=== PATIENT | female | born 1950 | race Caucasian/White ===

== ENCOUNTER 2018-12-26 07:47 | Emergency (ER) | payer MEDICARE, MEDICAID ==
[~2018-12-26] VITALS: Ht 160 cm; Wt 55.8 kg
--- OUTSIDE RECORDS SUMMARY | 2018-12-26 07:51 | XMS REPORT | Continuity of Care Document ---
Author Organization Unknown Address Unknown Allergies There is no data. Medications There is no data. Problems There is no data. Procedures There is no data. Results There is no data. Encounters ACCT No. Visit Date/Time Discharge Status Pt. Type Provider Facility Loc./Unit Complaint [id number] 12/15/2018 09:00:00 12/15/2018 23:59:59 CLS Outpatient SELF, DIEGO RUELAS [facility]
--- NOTE | 2018-12-26 08:04 | ED General ---
General Stated Complaint: CHEST PAIN Source of Information: Patient History of Present Illness Date Seen by Provider: December 26, 2018 Time Seen by Provider: 08:01 Initial Comments Patient is a 68 y/o female who presents to the ER this morning c/o chest pain. She was at rest, sitting on her couch, around 07:30 this morning when she had onset of some sternal chest pain, shortness of breath, and anxiety symptoms. Patient does not endorse prior hx of CAD but does have anxiety. Pain was rated 9/10 on arrival to the ER and the patient is also hyperventilating. Pain episode subsided after five minutes at home but the patient came to the ER for evaluation. On arrival, she was hyperventilating but this also subsided quickly. Patient no states she just feels anxious. Allergies and Home Medications Allergies Coded Allergies: No Known Drug Allergies (Unverified , 12/26/18) Home Medications Aspirin 81 Mg Tab.chew, 81 MG PO DAILY, (Reported) Esomeprazole Magnesium 40 Mg Capsule.dr, 40 MG PO DAILY, (Reported) Patient Home Medication List Home Medication List Reviewed: Yes Review of Systems Review of Systems Constitutional: no symptoms reported EENTM: no symptoms reported Respiratory: no symptoms reported Cardiovascular: see HPI Gastrointestinal: no symptoms reported Genitourinary: no symptoms reported Musculoskeletal: no symptoms reported Skin: no symptoms reported Psychiatric/Neurological: No Symptoms Reported Hematologic/Lymphatic: No Symptoms Reported All Other Systems Reviewed Negative Unless Noted: Yes Physical Exam Vital Signs Vital Signs - First Documented Capillary Refill : Height, Weight, BMI Height: '" Weight: lbs. oz. kg; BMI Method: General Appearance: No Apparent Distress, WD/WN Eyes: Bilateral Eye PERRL, Bilateral Eye EOMI HEENT: PERRL/EOMI, TMs Normal, Normal ENT Inspection Neck: Full Range of Motion Respiratory: Chest Non Tender, Lungs Clear, Normal Breath Sounds Cardiovascular: Regular Rate, Rhythm, No Edema Gastrointestinal: Normal Bowel Sounds Rectal: Normal Exam Extremity: Normal Capillary Refill Neurologic/Psychiatric: Alert, Oriented x3, No Motor/Sensory Deficits Skin: Normal Color, Warm/Dry Progress/Results/Core Measures Suspected Sepsis SIRS Temperature: Pulse: Respiratory Rate: Laboratory Tests 12/26/18 08:00: White Blood Count 4.6 Blood Pressure / Mean: Laboratory Tests 12/26/18 08:00: Creatinine 0.97, Platelet Count 358 Results/Orders Lab Results Laboratory Tests Test 12/26/18 08:00 12/26/18 10:00 Range/Units White Blood Count 4.6 4.3-11.0 10^3/uL Red Blood Count 3.97 L 4.35-5.85 10^6/uL Hemoglobin 12.2 11.5-16.0 G/DL Hematocrit 37 35-52 % Mean Corpuscular Volume 93 80-99 FL Mean Corpuscular Hemoglobin 31 25-34 PG Mean Corpuscular Hemoglobin Concent 33 32-36 G/DL Red Cell Distribution Width 13.6 10.0-14.5 % Platelet Count 358 130-400 10^3/uL Mean Platelet Volume 9.0 7.4-10.4 FL Neutrophils (%) (Auto) 54 42-75 % Lymphocytes (%) (Auto) 28 12-44 % Monocytes (%) (Auto) 8 0-12 % Eosinophils (%) (Auto) 8 0-10 % Basophils (%) (Auto) 2 0-10 % Neutrophils # (Auto) 2.5 1.8-7.8 X 10^3 Lymphocytes # (Auto) 1.3 1.0-4.0 X 10^3 Monocytes # (Auto) 0.4 0.0-1.0 X 10^3 Eosinophils # (Auto) 0.4 H 0.0-0.3 10^3/uL Basophils # (Auto) 0.1 0.0-0.1 10^3/uL Neutrophils % (Manual) 58 % Lymphocytes % (Manual) 25 % Monocytes % (Manual) 8 % Eosinophils % (Manual) 8 % Basophils % (Manual) 1 % Band Neutrophils 0 % Blood Morphology Comment NORMAL Sodium Level 141 135-145 MMOL/L Potassium Level 3.3 L 3.6-5.0 MMOL/L Chloride Level 101 98-107 MMOL/L Carbon Dioxide Level 19 L 21-32 MMOL/L Anion Gap 21 H 5-14 MMOL/L Blood Urea Nitrogen 10 7-18 MG/DL Creatinine 0.97 0.60-1.30 MG/DL Estimat Glomerular Filtration Rate 57 BUN/Creatinine Ratio 10 Glucose Level 88 70-105 MG/DL Calcium Level 9.3 8.5-10.1 MG/DL Troponin T 7 7 <=10 NG/L My Orders Orders - CATHY FELICIANO DO Cbc And Manual Diff (5/19/19 07:59) Basic Metabolic Panel (12/26/18 07:59) Troponin T (12/26/18 07:59) Chest 1 View Ap/Pa Only (12/26/18 07:59) Ekg Tracing (12/26/18 07:59) Aspirin Chewable Tablet (Baby Aspirin Ch (12/26/18 08:30) Troponin T (12/26/18 09:27) Medications Given in ED Current Medications Medications Dose Ordered Sig/[place] Route Start Time Stop Time Status Last Admin Dose Admin Aspirin 325 mg ONCE ONCE PO 12/26/18 08:30 12/26/18 08:36 DC 12/26/18 08:40 324 MG Vital Signs/I&O 12/26/18 12/26/18 07:52 07:52 Temp 97.9 Pulse 88 Resp 20 B/P (MAP) 146/92 (110) Pulse Ox 97 O2 Delivery Room Air Room Air Capillary Refill : Progress Note : Time: 10:41 Progress Note ED Summary: Patient was evaluated in the emergency department for chest pain which was fleeting and had resolved prior to her arrival in the ER. Patient has no personal history of coronary artery disease. She does have a history of anxiety and she endorsed that she felt this was the likely cause for her symptoms. In the ER, chest x-ray was completed and was nonacute. Troponin was collected 2, 2 hours apart and there was no elevation. Patient had no symptoms during the ED course. She was discharged to home. She already has scheduled follow-up with cardiology 3 days from now for initial stratification and risk assessment. Patient was advised to keep that appointment. Return to this ER if she develops any new or worsening symptoms. ECG Initial ECG Impression Date: December 26, 2018 Initial ECG Impression Time: 08:03 Initial ECG Rate: 78 Initial ECG Rhythm: Normal Sinus Initial ECG Intervals: Normal Initial ECG Impression: Normal Departure Impression Primary Impression: Chest pain Disposition: 01 HOME, SELF-CARE Condition: Improved Departure-Patient Inst. Referrals: SELF,DIEGO CARDENAS (PCP/Family) Primary Care Physician CATHY FELICIANO DO December 26, 2018 08:04
[2018-12-26 08:12] LABS: BASOPHILS % (AUTO) 2 % (0-10); EOSINOPHILS % (AUTO) 8 % (0-10); HEMATOCRIT 37 % (35-52); HEMOGLOBIN 12.2 G/DL (11.5-16.0); LYMPHOCYTES # (AUTO) 1.3 X 10^3 (1.0-4.0); LYMPHOCYTES % (AUTO) 28 % (12-44); MEAN CORPUSCULAR HEMOGLOBIN 31 PG (25-34); MEAN CORPUSCULAR HGB CONC 33 G/DL (32-36); MEAN CORPUSCULAR VOLUME 93 FL (80-99); MONOCYTES % (AUTO) 8 % (0-12); NEUTROPHILS # (AUTO) 2.5 X 10^3 (1.8-7.8); NEUTROPHILS % (AUTO) 54 % (42-75); PLATELET COUNT 358 10^3/uL (130-400); RED CELL DISTRIBUTION WIDTH 13.6 % (10.0-14.5); WHITE BLOOD COUNT 4.6 10^3/uL (4.3-11.0)
[2018-12-26 08:13] LABS: BASOPHILS # (AUTO) 0.1 10^3/uL (0.0-0.1); EOSINOPHILS # (AUTO) 0.4 10^3/uL (0.0-0.3); MONOCYTES # (AUTO) 0.4 X 10^3 (0.0-1.0)
[2018-12-26] MEDS ORDERED: ASPI-999 PO (08:20)
[2018-12-26] MEDS ORDERED: ESOM40CA52 PO (08:20)
--- NOTE | 2018-12-26 08:24 | Diagnostic Imaging Report ---
INDICATION: Sharp left-sided chest pain starting today.. TECHNIQUE: Single view chest 7:52 AM. CORRELATION STUDY: None FINDINGS: Heart size within normal limits. Vasculature within normal limits. Lung [place] are hyperinflated reflecting COPD. Some blunting the costophrenic angles may reflect a small pleural effusions versus pleural thickening. No consolidating infiltrate. Biapical pleural thickening. No pneumothorax. Lung apices are obscured by overlying monitor leads. IMPRESSION: 1. Findings reflect COPD. There may be trace pleural effusions versus pleural thickening. Dictated by: Dictated on workstation # [id number]
[2018-12-26] MEDS ORDERED: ASPIRIN 81 MG CHEW (CHILDREN'S ASA) PO ONE (08:30)
[2018-12-26 08:34] LABS: BAND NEUTROPHILS 0 %; CALCIUM 9.3 MG/DL (8.5-10.1); CREATININE SERUM 0.97 MG/DL (0.60-1.30); NEUTROPHILS % (MANUAL) 58 %; POTASSIUM 3.3 MMOL/L (3.6-5.0)
[2018-12-26 08:35] LABS: BASOPHILS % (MANUAL) 1 %; EOSINOPHILS % (MANUAL) 8 %; LYMPHOCYTES % (MANUAL) 25 %; MONOCYTES % (MANUAL) 8 %; RBC MORPH NORMAL
[2018-12-26 11:18] VITALS: BP 91/55
== END 2018-12-26 11:40 | disposition home or self-care (01) ==
LOC: EDUNIT# 07:47 → ER FS 07:48
DX: R07.9 Chest pain, unspecified (principal); F41.9 Anxiety disorder, unspecified; Z79.82 Long term (current) use of aspirin
CPT/HCPCS: 36415; 71045; 80048; 84484; 85007; 85027; 93005

== ENCOUNTER 2019-08-31 09:54 | Emergency (ER) | payer MEDICARE, MEDICAID ==
[~2019-08-31] VITALS: Ht 160 cm; Wt 52.6 kg
[~2019-08-31 09:54] MED LIST: ASPI-999 PO; ESOM40CA52 PO
--- NOTE | 2019-08-31 10:59 | ED Cardiac General ---
History of Present Illness General Chief Complaint: Cardiac/General Problems Stated Complaint: SOB; ELEV HR Nursing Triage Note: Pt presents ambulatory to ED reporting over last week while at rest she experiences feeling of heart racing that makes her feel SOA. Pt denies these symptoms currently. Pt is talking rapidly and moving all extremities frequently appearing very nervous. Pt reports anxiety dx on last visit for same. History of Present Illness Date Seen by Provider: Aug 31, 2019 Time Seen by Provider: 10:55 Initial Comments 68-year-old female told the nurse that she's had a feeling of her heart racing and shortness of breath for a week told me her heart was racing all night she got hot and sweaty and nauseated she says her heart at one point slowed to nothing and then raced again she denies ever having had pain no fever or cough is not sob currently is unaware of any having any cardiac or pulmonary pathology has never used inhalers She relates that frequently after she eats food will go right through her She does mention lupus and scleroderma and some other connective tissue type things which apparently there is possibility that she has one or more of these but she is not currently under treatment for anything specifically Right now she does not feel her heart is racing and has no symptoms monitoring analyst shows a sinus rhythm in the 90s with occ PAC Allergies and Home Medications Allergies Coded Allergies: No Known Drug Allergies (Unverified , 12/26/18) Home Medications Aspirin 81 Mg Tab.chew, 81 MG PO DAILY, (Reported) Esomeprazole Magnesium 40 Mg Capsule.dr, 40 MG PO DAILY, (Reported) Patient Home Medication List Home Medication List Reviewed: Yes Review of Systems Review of Systems Constitutional: No fever EENTM: No Symptoms Reported Respiratory: Other (to me pt denies sob) Cardiovascular: Palpitations; Denies Syncope Gastrointestinal: No Symptoms Reported Genitourinary: No Symptoms Reported Musculoskeletal: no symptoms reported Skin: no symptoms reported Psychiatric/Neurological: No Symptoms Reported Endocrine: No Symptoms Reported Hematologic/Lymphatic: No Symptoms Reported Past Ndapodr-Huynde-Wakzga Hx Patient Social History Alcohol Use: Denies Use Recreational Drug Use: No Smoking Status: Never a Smoker 2nd Hand Smoke Exposure: No Recent Foreign Travel: No Contact w/Someone Who Travel: No Recent Infectious Disease Expo: No Recent Hopitalizations: No Physical Abuse: No Sexual Abuse: No Mistreated: No Fear: No Seasonal Allergies Seasonal Allergies: No Past Medical History Surgeries: Yes Adenoidectomy, Gallbladder, Tonsillectomy Respiratory: Yes Pneumonia, COPD Cardiac: No Neurological: No Genitourinary: Yes (glomerulonephritis) Gastrointestinal: Yes (gastritis, duodenitis) Gastroesophageal Reflux Musculoskeletal: Yes Fibromyalgia Endocrine: Yes (systemic scleroderma) Lupus HEENT: No Cancer: No Psychosocial: Yes Anxiety, Depression Integumentary: Yes (scleroderma) Blood Disorders: No Physical Exam Vital Signs Vital Signs - First Documented 08/31/19 10:00 Temp 36.6 Pulse 87 Resp 22 B/P (MAP) 129/73 (91) Pulse Ox 100 O2 Delivery Room Air Capillary Refill : Less Than 3 Seconds Height, Weight, BMI Height: 5'3.00" Weight: 123lbs. oz. 55.674408vw; 20.00 BMI Method:Stated General Appearance: No Apparent Distress HEENT: PERRL/EOMI Neck: Normal Inspection, Supple; No Thyromegaly Respiratory: Lungs Clear, No Accessory Muscle Use Cardiovascular: Regular Rate, Rhythm, No Murmur Gastrointestinal: Normal Bowel Sounds Rectal: Normal Exam Progress/Results/Core Measures Results/Orders Lab Results Laboratory Tests Test 08/31/19 10:58 08/31/19 11:16 Range/Units White Blood Count 4.2 L 4.3-11.0 10^3/uL Red Blood Count 3.87 L 4.35-5.85 10^6/uL Hemoglobin 11.6 11.5-16.0 G/DL Hematocrit 37 35-52 % Mean Corpuscular Volume 96 80-99 FL Mean Corpuscular Hemoglobin 30 25-34 PG Mean Corpuscular Hemoglobin Concent 31 L 32-36 G/DL Red Cell Distribution Width 13.6 10.0-14.5 % Platelet Count 248 130-400 10^3/uL Mean Platelet Volume 9.2 7.4-10.4 FL Neutrophils (%) (Auto) 75 42-75 % Lymphocytes (%) (Auto) 14 12-44 % Monocytes (%) (Auto) 7 0-12 % Eosinophils (%) (Auto) 3 0-10 % Basophils (%) (Auto) 1 0-10 % Neutrophils # (Auto) 3.2 1.8-7.8 X 10^3 Lymphocytes # (Auto) 0.6 L 1.0-4.0 X 10^3 Monocytes # (Auto) 0.3 0.0-1.0 X 10^3 Eosinophils # (Auto) 0.1 0.0-0.3 10^3/uL Basophils # (Auto) 0.1 0.0-0.1 10^3/uL Sodium Level 139 135-145 MMOL/L Potassium Level 3.4 L 3.6-5.0 MMOL/L Chloride Level 103 98-107 MMOL/L Carbon Dioxide Level 20 L 21-32 MMOL/L Anion Gap 16 H 5-14 MMOL/L Blood Urea Nitrogen 15 7-18 MG/DL Creatinine 0.91 0.60-1.30 MG/DL Estimat Glomerular Filtration Rate > 60 BUN/Creatinine Ratio 16 Glucose Level 80 70-105 MG/DL Calcium Level 9.0 8.5-10.1 MG/DL Corrected Calcium 8.8 8.5-10.1 MG/DL Total Bilirubin 0.5 0.1-1.0 MG/DL Aspartate Amino Transf (AST/SGOT) 16 5-34 U/L Alanine Aminotransferase (ALT/SGPT) 8 0-55 U/L Alkaline Phosphatase 55 40-136 U/L Troponin I < 0.30 <0.30 NG/ML Total Protein 6.4 6.4-8.2 GM/DL Albumin 4.2 3.2-4.5 GM/DL My Orders Orders - NAINA IRCHARDS MD Monitor-Rhythm Ecg Trace Only (08/31/19 10:30) Iv Heplock-Insert (Order) (08/31/19 10:51) Cbc With Automated Diff (08/31/19 10:51) Comprehensive Metabolic Panel (08/31/19 10:51) Troponin I Fs (08/31/19 10:51) Thyroid Stimulating Hormone (08/31/19 10:51) Ekg Tracing (08/31/19 10:51) Chest Pa/Lat (2 View) (08/31/19 10:51) Vital Signs/I&O 08/31/19 10:00 Temp 36.6 Pulse 87 Resp 22 B/P (MAP) 129/73 (91) Pulse Ox 100 O2 Delivery Room Air Blood Pressure Mean: 91 Progress Progress Note : Progress Note CXR - no acute findings hemoglobin 11 6 white count 4200 CMP essentially normal TSH - am told is send out so remains pending EKG : Comment EKG shows a sinus rhythm rate 59 no acute changes Departure Impression Primary Impression: Palpitations Disposition: 01 HOME, SELF-CARE Condition: Stable Departure-Patient Inst. Decision time for Depature: 12:05 Referrals: SELFDIEGO MD (PCP/Family) Primary Care Physician Patient Instructions: Palpitations NAINA RICHARDS MD Aug 31, 2019 10:59
--- NOTE | 2019-08-31 11:00 | NUR ---
Patient has an occas PAC, very rare PVC on monitor. Monitor reveals SR 70-80's.
--- NOTE | 2019-08-31 11:11 | Diagnostic Imaging Report ---
CLINICAL INDICATION: Patient with palpitations. EXAM: Chest x-ray, PA and lateral views. COMPARISONS: Chest x-ray dated 12/26/2018. FINDINGS: Lungs/pleura: Again seen hyperinflated lungs. There is no interval lung infiltrate. There are slightly increased lung markings in both lung bases, which may represent scarring. There is no pneumothorax. There is no pleural effusion. Mediastinum: Unremarkable. Pulmonary vasculature: Unremarkable. Heart: Unremarkable. Bones/extrathoracic soft tissue: There are small spurs involving the thoracic spine. IMPRESSION: 1: There is no radiographic evidence of acute cardiopulmonary process. 2: Stable hyperinflated lungs. No radiographic evidence of acute cardiopulmonary process. Dictated by: Dictated on workstation # [id number]
[2019-08-31 11:33] LABS: HEMATOCRIT 37 % (35-52); HEMOGLOBIN 11.6 G/DL (11.5-16.0); MEAN CORPUSCULAR HEMOGLOBIN 30 PG (25-34); MEAN CORPUSCULAR HGB CONC 31 G/DL (32-36); MEAN CORPUSCULAR VOLUME 96 FL (80-99); MEAN PLATELET VOLUME 9.2 FL (7.4-10.4); PLATELET COUNT 248 10^3/uL (130-400); RED CELL DISTRIBUTION WIDTH 13.6 % (10.0-14.5); WHITE BLOOD COUNT 4.2 10^3/uL (4.3-11.0)
[2019-08-31 11:34] LABS: BASOPHILS # (AUTO) 0.1 10^3/uL (0.0-0.1); BASOPHILS % (AUTO) 1 % (0-10); EOSINOPHILS # (AUTO) 0.1 10^3/uL (0.0-0.3); EOSINOPHILS % (AUTO) 3 % (0-10); LYMPHOCYTES # (AUTO) 0.6 X 10^3 (1.0-4.0); LYMPHOCYTES % (AUTO) 14 % (12-44); MONOCYTES # (AUTO) 0.3 X 10^3 (0.0-1.0); MONOCYTES % (AUTO) 7 % (0-12); NEUTROPHILS # (AUTO) 3.2 X 10^3 (1.8-7.8); NEUTROPHILS % (AUTO) 75 % (42-75)
[2019-08-31 11:48] LABS: ALANINE AMINOTRANSFERASE 8 U/L (0-55); ALKALINE PHOSPHATASE 55 U/L (40-136); BILIRUBIN,TOTAL 0.5 MG/DL (0.1-1.0); BUN/CREATININE RATIO 16; CARBON DIOXIDE 20 MMOL/L (21-32); CHLORIDE 103 MMOL/L (98-107); CREATININE SERUM 0.91 MG/DL (0.60-1.30); GFR ESTIMATED > 60; GLUCOSE 80 MG/DL (70-105); POTASSIUM 3.4 MMOL/L (3.6-5.0); SODIUM 139 MMOL/L (135-145)
[2019-08-31 11:49] LABS: ALBUMIN 4.2 GM/DL (3.2-4.5); TOTAL PROTEIN 6.4 GM/DL (6.4-8.2)
--- NOTE | 2019-08-31 12:00 | NUR ---
Pt continues to remain chest pain free and and monitor pattern SR 60's - low 70's with occas PAC and very rare PVC noted. Pt remains feeling calmer and less anxious.
[2019-08-31 12:11] VITALS: BP 108/58
--- NOTE | 2019-08-31 12:11 | NUR ---
Patient discharged to home after review of home instructions read and verbalized as understood. Pt reports understanding she will f/u with Dr Rueda to get thyroid result.
== END 2019-08-31 12:11 | disposition home or self-care (01) ==
LOC: EDUNIT# 09:54 → ER FS 09:55
DX: R00.2 Palpitations (principal); J44.9 Chronic obstructive pulmonary disease, unspecified; F41.9 Anxiety disorder, unspecified; F32.9 Major depressive disorder, single episode, unspecified; K21.9 Gastro-esophageal reflux disease without esophagitis; M79.7 Fibromyalgia; Z79.82 Long term (current) use of aspirin; Z90.89 Acquired absence of other organs; Z87.39 Personal history of other diseases of the musculoskeletal system and connective tissue
CPT/HCPCS: 36415; 71046; 80053; 84443; 84484; 85025; 93005; 93041

== ENCOUNTER 2020-03-16 20:05 | Emergency (ER) | payer OTHER, MEDICAID ==
[~2020-03-16] VITALS: Ht 162.6 cm; Wt 56.4 kg
--- OUTSIDE RECORDS SUMMARY | 2020-03-16 20:09 | XMS REPORT | Continuity of Care Document ---
Author Organization Unknown Address Unknown Phone Unavailable Allergies Active Description Code Type Severity Reaction Onset Reported/Identified Relationship to Patient Clinical Status Yes No Known Drug Allergies [id number] Drug Allergy Unknown N/A 12/26/2018 Medications There is no data. Problems Date Dx Coded Attending Type Code Diagnosis Diagnosed By 12/26/2018 CATHY FELICIANO DO, Ot F41 .9 ANXIETY DISORDER, UNSPECIFIED 12/26/2018 CATHY FELICIANO DO, Ot R07 .9 CHEST PAIN, UNSPECIFIED 12/26/2018 CATHY FELICIANO DO, Ot Z79.82 RETIREMENT (CURRENT) USE OF ASPIRIN 08/31/2019 NAINA RICHARDS MD, Ot F32. 9 MAJOR DEPRESSIVE DISORDER, SINGLE EPISOD 08/31/2019 NAINA RICHARDS MD, Ot F41. 9 ANXIETY DISORDER, UNSPECIFIED 08/31/2019 NAINA RICHARDS MD, Ot J44. 9 CHRONIC OBSTRUCTIVE PULMONARY DISEASE, U 08/31/2019 NAINA RICHARDS MD, Ot K21. 9 GASTRO-ESOPHAGEAL REFLUX DISEASE WITHOUT 08/31/2019 NAINA RICHARDS MD, Ot M79. 7 FIBROMYALGIA 08/31/2019 NAINA RICHARDS MD, Ot R00. 2 PALPITATIONS 08/31/2019 NAINA RICHARDS MD Ot R06. 02 SHORTNESS OF BREATH 08/31/2019 NAINA RICHARDS MD, Ot Z79. 82 RETIREMENT (CURRENT) USE OF ASPIRIN 08/31/2019 NAINA RICHARDS MD Ot Z87. 39 PERSONAL HISTORY OF DISEASES OF THE MS S 08/31/2019 NAINA RICHARDS MD, Ot Z90. 89 ACQUIRED ABSENCE OF OTHER ORGANS Procedures There is no data. Results Test Result Range Blood CBC with ordered manual differenti al panel - 12/26/18 08:00 Blood leukocytes automated count (number/volume) 4.6 10*3/uL 4.3-11.0 Blood erythrocytes automated count (number/volume) 3.97 10*6/uL 4.35-5.85 Venous blood hemoglobin measurement (mass/volume) 12.2 g/dL 11.5-16.0 Blood hematocrit (volume fraction) 37 % 35-52 Automated erythrocyte mean corpuscular volume 93 [ [facility]] 80-99 Automated erythrocyte mean corpuscular h emoglobin (mass per erythrocyte) 31 pg 25-34 Automated erythrocyte mean corpuscular h emoglobin concentration measurement (mass/volume) 33 g/dL 32-36 Automated erythrocyte distribution width ratio 13. 6 % 10.0- 14.5 Automated blood platelet count (count/volume) 358 10*3/uL 130-400 Automated blood platelet mean volume measurement 9.0 [z_us] 7.4-10.4 Automated blood neutrophils/100 leukocytes 54 % 42-75 Automated blood lymphocytes/100 leukocytes 28 % 12-44 Blood monocytes/100 leukocytes 8 % NRG Automated blood eosinophils/100 leukocytes 8 % 0-10 Automated blood basophils/100 leukocytes 2 % 0-10 Blood neutrophils automated count (number/volume) 2.5 10*3 1.8-7.8 Blood lymphocytes automated count (number/volume) 1.3 10*3 1.0-4.0 Blood monocytes automated count (number/volume) 0. 4 10*3 0.0-1.0 Automated eosinophil count 0.4 10*3/uL 0 .0-0.3 Automated blood basophil count (count/volume) 0.1 10*3/uL 0.0-0.1 Manual blood segmented neutrophils/100 leukocytes 58 % NRG Blood band neutrophils/100 leukocytes 0 % NRG Manual blood lymphocytes/100 leukocytes 25 % NRG Manual eosinophils/100 leukocytes in nose 8 % NRG Manual blood basophils/100 leukocytes 1 % NRG Blood erythrocyte morphology finding identification NORMAL [facility] Whole blood basic metabolic panel - 12/08 04/28 08:00 Serum or plasma sodium measurement (moles/volume) 141 mmol/L 135-145 Serum or plasma potassium measurement (moles/volume) 3.3 mmol/L 3.6-5.0 Serum or plasma chloride measurement (moles/volume) 101 mmol/L 98-107 Carbon dioxide 19 mmol/L 21-32 Serum or plasma anion gap determination (moles/volume) 21 mmol/L 5-14 Serum or plasma urea nitrogen measurement (mass/volume ) 10 mg/dL 7-18 Serum or plasma creatinine measurement (mass/volume) 0.97 mg/dL 0.60-1.30 Serum or plasma urea nitrogen/creatinine mass ratio 10 NRG Serum or plasma creatinine measurement w ith calculation of estimated glomerular filtration rate 57 NRG Serum or plasma glucose measurement (mass/volume) 88 mg/dL 70-105 Serum or plasma calcium measurement (mass/volume) 9.3 mg/dL 8.5-10.1 TROPONIN T - 12/26/18 08:00 TROPONIN T 7 % <=10 TROPONIN T - 12/26/18 10:00 TROPONIN T 7 % <=10 Complete blood count (CBC) with automate d white blood cell (WBC) differential - 08/31/19 10:58 Blood leukocytes automated count (number/volume) 4.2 10*3/uL 4.3-11.0 Blood erythrocytes automated count (number/volume) 3.87 10*6/uL 4.35-5.85 Venous blood hemoglobin measurement (mass/volume) 11.6 g/dL 11.5-16.0 Blood hematocrit (volume fraction) 37 % 35-52 Automated erythrocyte mean corpuscular volume 96 [ foz_us] 80-99 Automated erythrocyte mean corpuscular h emoglobin (mass per erythrocyte) 30 pg 25-34 Automated erythrocyte mean corpuscular h emoglobin concentration measurement (mass/volume) 31 g/dL 32-36 Automated erythrocyte distribution width ratio 13. 6 % 10.0- 14.5 Automated blood platelet count (count/volume) 248 10*3/uL 130-400 Automated blood platelet mean volume measurement 9.2 [foz_us] 7.4-10.4 Automated blood neutrophils/100 leukocytes 75 % 42-75 Automated blood lymphocytes/100 leukocytes 14 % 12-44 Blood monocytes/100 leukocytes 7 % 0-12 Automated blood eosinophils/100 leukocytes 3 % 0-10 Automated blood basophils/100 leukocytes 1 % 0-10 Blood neutrophils automated count (number/volume) 3.2 10*3 1.8-7.8 Blood lymphocytes automated count (number/volume) 0.6 10*3 1.0-4.0 Blood monocytes automated count (number/volume) 0. 3 10*3 0.0-1.0 Automated eosinophil count 0.1 10*3/uL 0 .0-0.3 Automated blood basophil count (count/volume) 0.1 10*3/uL 0.0-0.1 Comprehensive metabolic panel - 08/31/19 11:16 Serum or plasma sodium measurement (moles/volume) 139 mmol/L 135-145 Serum or plasma potassium measurement (moles/volume) 3.4 mmol/L 3.6-5.0 Serum or plasma chloride measurement (moles/volume) 103 mmol/L 98-107 Carbon dioxide 20 mmol/L 21-32 Serum or plasma anion gap determination (moles/volume) 16 mmol/L 5-14 Serum or plasma urea nitrogen measurement (mass/volume ) 15 mg/dL 7-18 Serum or plasma creatinine measurement (mass/volume) 0.91 mg/dL 0.60-1.30 Serum or plasma urea nitrogen/creatinine mass ratio 16 NRG Serum or plasma creatinine measurement w ith calculation of estimated glomerular filtration rate > NRG Serum or plasma glucose measurement (mass/volume) 80 mg/dL 70-105 Serum or plasma calcium measurement (mass/volume) 9.0 mg/dL 8.5-10.1 Serum or plasma total bilirubin measurement (mass/volu me) 0.5 mg/dL 0.1-1.0 Serum or plasma alkaline phosphatase yani surement (enzymatic activity/volume) 55 U/L 40-136 Serum or plasma aspartate aminotransfera se measurement (enzymatic activity/volume) 16 U/L 5-34 Serum or plasma alanine aminotransferase measurement (enzymatic activity/volume) 8 U/L 0-55 Serum or plasma protein measurement (mass/volume) 6.4 g/dL 6.4-8.2 Serum or plasma albumin measurement (mass/volume) 4.2 g/dL 3.2-4.5 CALCIUM CORRECTED 8.8 mg/dL 8.5-10.1 TROPONIN I FS - 08/31/19 11:16 TROPONIN I FS < 0.30 <0.30 THYROID STIMULATING HORMONE - 08/31/19 1 1:16 THYROID STIMULATING HORMONE 3.56 u[iU]/mL 0.35-4.94 Encounters ACCT No. Visit Date/Time Discharge Status Pt. Type Provider Facility Loc./Unit Complaint [id number] 12/15/2018 09:00:00 12/15/2018 23:59: 59 CLS Outpatient SELF, DIEGO Eric [facility] [id number] 08/31/2019 09:55:00 020 12:11:00 DIS Emergency NAINA RICHARDS MD [facility] ER FS SOB; ELEV HR [id number] 12/26/2018 07:48:00 019 11:40:00 DIS Emergency CATHY FELICIANO DO [facility] ER FS CHEST PAIN [id number] 03/16/2020 20:06:[address] Emergency CHANDU ANDERS DO [facility] ER FS FELL,WRIST PAIN [id number] 12/26/2018 08:13:00 Document Registration
--- OUTSIDE RECORDS SUMMARY | 2020-03-16 20:09 | XMS REPORT ---
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 A ctive 422834340 Problem Irritable bowel syndrome with both constipation and diarrh ea K58.2 Active 67092249 Problem Myalgia and myositis JBN0911 Active 26075611 Problem Severe depression F32.2 Active 31 4437960 Problem Systemic lupus erythematosus M32.9 A ctive 54622179 Problem Gastroesophageal reflux disease K21.9 Active 367219591 Problem Post menopausal syndrome N95.1 Activ e 485064743 Problem Stable angina I20.8 Active 282028 005 ALLERGIES No Known Allergies ENCOUNTERS Encounter Location Date Diagnosis [address] [id number] [address] Nov, [address] [id number] [address] Aug, Palpitations R00.2 ; Systemi c lupus erythematosus M32.9 ; Gastroesophageal reflux disease K21.9 ; Severe depression F32.2 and Irritable bowel syndrome with both constipation and diarrhea K58.2 [facility] [address] [facility] [id number] [address] [place] [address] Aug, [address] [id number] [address] Jul, [address] [id number] [address] Feb, [facility] [address] [id number] [place] [address] December, Stable angina I20.8 [facility] [id number] [place] [address] Nov, Gastroesophageal reflux dise ase K21.9 ; Systemic lupus erythematosus M32.9 ; Post menopausal syndrome N95.1 and Screening mammogram, encounter for Z12.31 [facility] [address] [facility] [id number] [address] [place] [address] Jul, [place] [address] [facility] [id number] [address] [place] [address] May, [facility] [address] [facility] [id number] [address] [place] [id number] December, [facility] [address] [facility] [id number] [address] [place] [address] December, IMMUNIZATIONS No Known Immunizations SOCIAL HISTORY Never Assessed REASON FOR VISIT Establish Care PLAN OF CARE Activity Details Follow Up 6 Months Reason:laba and vis it VITAL SIGNS Height 5'3.5" in 2018-11-08 Weight 123 lbs 2018-11-08 BMI 21.44 kg/m2 2018-11-08 Blood pressure systolic 118 mmHg 2018-11-08 Blood pressure diastolic 66 mmHg 2018-11-08 MEDICATIONS Medication Instructions Dosage Frequency Start Date End Date Duration S tatus Esomeprazole Magnesium 40 MG May, Active RESULTS No Results PROCEDURES Procedure Date Ordered Result Body Site [facility] VISIT ESTABLISHED PATIENT November 08, 2018 INSTRUCTIONS MEDICATIONS ADMINISTERED No Known Medications MEDICAL (GENERAL) HISTORY Type Description Date Medical History Systemic lupus erythematosus Medical History Other B-complex deficiencies Medical History Systemic sclerosis Medical History Patellofemoral syndrome Medical History Gastroesophageal reflux disease Medical History Raynaud disease Medical History Stable angina Medical History Post menopausal syndrome Surgical History tonsillectomy and adenoidectomy Surgical History left knee arthroscopy Surgical History cholecystectomy
[2020-03-16 20:13] VITALS: BP 137/66
--- NOTE | 2020-03-16 20:25 | Diagnostic Imaging Report ---
INDICATION: Fall, right wrist injury. COMPARISON: None. EXAMINATION: Three views of the right wrist were obtained. FINDINGS: Comminuted displaced angulated fracture of the distal radius. The ulna is intact. Carpal bones are unremarkable. IMPRESSION: Distal radial fracture. Dictated by: Dictated on workstation # [id number]
--- NOTE | 2020-03-16 20:26 | ED Upper Extremity ---
General Chief Complaint: Upper Extremity Stated Complaint: FELL,WRIST PAIN Nursing Triage Note: pt standing on a folding chair hanging a picture and fell hitting right wrist on chair Nursing Sepsis Screen: No Definite Risk Source: patient Exam Limitations: no limitations History of Present Illness Date Seen by Provider: Mar 16, 2020 Time Seen by Provider: 20:15 Initial Comments fall just prior to arrival on outstretched R hand, now w pain, swelling and deformity of R wrist. No other injury or pain. no numbness. Allergies and Home Medications Allergies Coded Allergies: No Known Drug Allergies (Unverified , 12/26/18) Home Medications Aspirin 81 Mg Tab.chew, 81 MG PO DAILY, (Reported) Esomeprazole Magnesium 40 Mg Capsule.dr, 40 MG PO DAILY, (Reported) Patient Home Medication List Home Medication List Reviewed: Yes Review of Systems Constitutional: no symptoms reported Musculoskeletal: see HPI, other (R wrist pain/ injury) Skin: No change in color, No change in hair/nails, No lesions, No rash Psychiatric/Neurological: Denies Numbness, Denies Paresthesia Past Wxjgquu-Xozvua-Sgnrcf Hx Past Med/Social Hx: Reviewed Nursing Past Med/Soc Hx Patient Social History Alcohol Use: Denies Use Recreational Drug Use: No Smoking Status: Never a Smoker 2nd Hand Smoke Exposure: No Recent Foreign Travel: No Contact w/Someone Who Travel: No Recent Infectious Disease Expo: No Recent Hopitalizations: No Physical Abuse: No Sexual Abuse: No Mistreated: No Fear: No Seasonal Allergies Seasonal Allergies: No Past Medical History Surgeries: Yes Adenoidectomy, Gallbladder, Orthopedic, Tonsillectomy Respiratory: Yes Pneumonia, COPD Cardiac: No Neurological: No Genitourinary: Yes (glomerulonephritis) Gastrointestinal: Yes (gastritis, duodenitis) Gastroesophageal Reflux Musculoskeletal: Yes Fibromyalgia Endocrine: Yes (systemic scleroderma) Lupus HEENT: No Cancer: No Psychosocial: Yes Anxiety, Depression Integumentary: Yes (scleroderma) Blood Disorders: No Physical Exam Vital Signs Vital Signs - First Documented 03/16/20 20:13 Temp 36.4 Pulse 87 Resp 12 B/P (MAP) 137/66 (89) Pulse Ox 100 O2 Delivery Room Air Capillary Refill : Less Than 3 Seconds Height, Weight, BMI Height: 5'3.00" Weight: 123lbs. oz. 55.629182vq; 21.00 BMI Method:Stated General Appearance: WD/WN, no apparent distress Elbow/Forearm: normal inspection, non-tender, no evidence of injury, normal ROM Wrist: Yes bone tenderness, Yes deformity, Yes limited ROM, Yes pain, Yes swelling Hand: normal inspection, non-tender, no evidence of injury, Right Neurologic/Tendon: normal motor functions; No sensory deficit Neurologic/Psychiatric: no motor/sensory deficits, normal mood/affect dorsal angulation distal RADIUS. Procedures/Interventions Splinting and Joint Reduction : Pre-Proc Neuro Vasc Exam: normal Post-Proc Neuro Vasc Exam: normal Celestino wrap: Yes Arm Sling: Large Hand-Made Type: fiberglass Splint Application: Short Arm (sugar tong) Progress/Results/Core Measures Results/Orders My Orders Orders - CHANDU ANDERS DO Wrist 3 View Right (03/16/20 20:10) Vital Signs/I&O 03/16/20 20:13 Temp 36.4 Pulse 87 Resp 12 B/P (MAP) 137/66 (89) Pulse Ox 100 O2 Delivery Room Air Blood Pressure Mean: 89 Diagnostic Imaging Diagonstic Imaging: Xray Comments distal radius fx- dorsally angulated and displaced Reviewed: Reviewed by Me Departure Impression Primary Impression: Fracture, radius, distal Qualified Codes: S52.501A - Unspecified fracture of the lower end of right radius, initial encounter for closed fracture Disposition: 01 HOME, SELF-CARE Condition: Stable Departure-Patient Inst. Decision time for Depature: 20:25 Referrals: KRISTY EM MD SELF,DIEGO CARDENAS (PCP/Family) Primary Care Physician SARAH CERRATO MD Patient Instructions: Radius Fracture (DC) Add. Discharge Instructions: Follow up with Ortho next week for fracture care and casting. Call the ER with questions or concerns All discharge instructions reviewed with patient and/or family. Voiced understanding. CHANDU ANDERS DO Mar 16, 2020 20:26
== END 2020-03-16 20:34 | disposition home or self-care (01) ==
LOC: EDUNIT# 20:05 → ER FS 20:06
DX: S52.501A Unspecified fracture of the lower end of right radius, initial encounter for closed fracture (principal); K21.9 Gastro-esophageal reflux disease without esophagitis; Z79.82 Long term (current) use of aspirin; W07.XXXA Fall from chair, initial encounter
CPT/HCPCS: 25565; 29125; 73110

== ENCOUNTER 2020-09-29 12:01 | Emergency (ER) | payer MEDICARE, MEDICAID, OTHER ==
[~2020-09-29] VITALS: Ht 160 cm; Wt 52.2 kg
[2020-09-29] MEDS ORDERED: ONDANSETRON 4 MG/2 ML (SDV) Z0FRAN IVP STA (12:28)
[2020-09-29] MEDS ORDERED: NS IV 1000 ML 1,000 ML IV SCH (12:30)
--- NOTE | 2020-09-29 12:38 | ED General ---
General Chief Complaint: Respiratory Problems Stated Complaint: SOB;NAUSEA Nursing Triage Note: Patient reports sudden onset of feeling like her heart is racing, shortness of breath, and nausea 2 weeks ago. States she had some diarrhea last week that has now resolved. She denies any fever, cough, nasal congestion, or sick contacts. She reports she has been unable to eat for at least one week d/t her nausea. Nursing Sepsis Screen: No Definite Risk Source of Information: Patient History of Present Illness Date Seen by Provider: Sep 29, 2020 Time Seen by Provider: 12:03 Initial Comments 70-year-old female presenting with concerns about 2 weeks worth of shortness of breath and feeling like her heart is racing. She has also had episodes of nausea without vomiting. She has had 5-6 episodes of diarrhea in the last week. She feels like she has no appetite because of the nausea. She denies any fever, cough, nasal congestion. [facility] and there have been at least 6 or 7 people with Covid in the [facility]. She feels like she has not had any close contact with any of them. She has not seen her primary care provider about the symptoms in the last 2 weeks because of the severe weather. She reports having something similar a few years ago and was told that her shortness of breath and racing heart was related to anxiety and a panic attack. However she feels like that would not explain her symptoms over 2 weeks period of time. She denies any pain or burning with urination. She takes a baby aspirin and medicine for stomach acid. Allergies and Home Medications Allergies Coded Allergies: No Known Drug Allergies (Unverified , 12/26/18) Home Medications Aspirin 81 Mg Tab.chew, 81 MG PO DAILY, (Reported) Cephalexin 500 Mg Tablet, 500 MG PO TID Prescribed by: CHANTAL TIDWELL on 09/29/20 1341 Esomeprazole Magnesium 40 Mg Capsule.dr, 40 MG PO DAILY, (Reported) Ondansetron 4 Mg Tab.rapdis, 4 MG PO Q6H PRN for NAUSEA/VOMITING Prescribed by: CHANTAL TIDWELL on 09/29/20 1341 Patient Home Medication List Home Medication List Reviewed: Yes Review of Systems Review of Systems Constitutional: No chills, No diaphoresis, No fever; malaise EENTM: no symptoms reported Respiratory: No cough, No hemoptysis; short of breath; No stridor, No wheezing Cardiovascular: No chest pain; palpitations (Feels like her heart is racing) Gastrointestinal: No abdominal pain; diarrhea (5-6 episodes this week), loss of appetite (Due to nausea), nausea, vomiting (Dry heaves) Genitourinary: No dysuria, No frequency Musculoskeletal: no symptoms reported Skin: No rash Psychiatric/Neurological: Anxiety; Denies Headache Hematologic/Lymphatic: No Symptoms Reported Immunological/Allergic: no symptoms reported Past Vqueize-Dctcrn-Wlfzwv Hx Past Med/Social Hx: Reviewed Nursing Past Med/Soc Hx Patient Social History Alcohol Use: Denies Use Smoking Status: Never a Smoker 2nd Hand Smoke Exposure: No Recent Infectious Disease Expo: No Recent Hopitalizations: No Seasonal Allergies Seasonal Allergies: No Past Medical History Surgeries: Yes Adenoidectomy, Gallbladder, Orthopedic, Tonsillectomy Respiratory: Yes Pneumonia, COPD Cardiac: No Neurological: No Genitourinary: Yes (glomerulonephritis) Gastrointestinal: Yes (gastritis, duodenitis) Gastroesophageal Reflux Musculoskeletal: Yes Fibromyalgia Endocrine: Yes (systemic scleroderma) Lupus HEENT: No Cancer: No Psychosocial: Yes Anxiety, Depression Integumentary: Yes (scleroderma) Blood Disorders: No Physical Exam Vital Signs Vital Signs - First Documented 09/29/20 12:05 Temp 37.3 Pulse 104 Resp 18 B/P (MAP) 132/66 (88) Pulse Ox 94 O2 Delivery Room Air Capillary Refill : Less Than 3 Seconds Height, Weight, BMI Height: 5'3.00" Weight: 123lbs. oz. 55.670058fd; 20.00 BMI Method:Stated General Appearance: WD/WN, Anxious HEENT: PERRL/EOMI, Pharynx Normal Neck: Full Range of Motion, Normal Inspection, Non Tender, Supple Respiratory: Chest Non Tender, Lungs Clear, Normal Breath Sounds, No Accessory Muscle Use, No Respiratory Distress Cardiovascular: Regular Rate, Rhythm; No No Murmur; Normal Peripheral Pulses Gastrointestinal: Normal Bowel Sounds, No Pulsatile Mass, Non Tender, Soft Rectal: Deferred Extremity: Normal Capillary Refill, Normal Inspection, Normal Range of Motion, Non Tender, No Calf Tenderness, No Pedal Edema Neurologic/Psychiatric: Alert, Oriented x3, No Motor/Sensory Deficits, lawyer II- XII Norm as Tested Skin: Normal Color, Warm/Dry; No Rash Focused Exam Lactate Level 09/29/20 12:30: Lactic Acid Level 1.25 Lactic Acid Level Laboratory Tests Test 09/29/20 12:30 Lactic Acid Level 1.25 MMOL/L (0.50-2.00) Progress/Results/Core Measures Suspected Sepsis Recent Fever Within 48 Hours: No Infection Criteria Present: Suspected New Infection New/Unexplained Altered Menta: No Sepsis Screen: No Definite Risk SIRS Temperature: Pulse: 104 Respiratory Rate: 18 Laboratory Tests 09/29/20 12:30: White Blood Count 4.6 Blood Pressure 132 /66 Mean: 88 09/29/20 12:30: Lactic Acid Level 1.25 Laboratory Tests 09/29/20 12:30: Creatinine 1.04, INR Comment 1.0, Platelet Count 362, Total Bilirubin 0.6 Results/Orders Lab Results Laboratory Tests Test 09/29/20 12:30 09/29/20 12:50 09/29/20 13:15 Range/Units White Blood Count 4.6 4.3-11.0 10^3/uL Red Blood Count 4.12 L 4.35-5.85 10^6/uL Hemoglobin 12.4 11.5-16.0 G/DL Hematocrit 37 35-52 % Mean Corpuscular Volume 90 80-99 FL Mean Corpuscular Hemoglobin 30 25-34 PG Mean Corpuscular Hemoglobin Concent 34 32-36 G/DL Red Cell Distribution Width 14.1 10.0-14.5 % Platelet Count 362 130-400 10^3/uL Mean Platelet Volume 9.5 7.4-10.4 FL Immature Granulocyte % (Auto) 0 % Neutrophils (%) (Auto) 69 42-75 % Lymphocytes (%) (Auto) 19 12-44 % Monocytes (%) (Auto) 7 0-12 % Eosinophils (%) (Auto) 4 0-10 % Basophils (%) (Auto) 2 0-10 % Neutrophils # (Auto) 3.2 1.8-7.8 X 10^3 Lymphocytes # (Auto) 0.9 L 1.0-4.0 X 10^3 Monocytes # (Auto) 0.3 0.0-1.0 X 10^3 Eosinophils # (Auto) 0.2 0.0-0.3 10^3/uL Basophils # (Auto) 0.1 0.0-0.1 10^3/uL Immature Granulocyte # (Auto) 0.0 0.0-0.1 10^3/uL Prothrombin Time 13.9 12.2-14.7 SEC INR Comment 1.0 0.8-1.4 Activated Partial Thromboplast Time 29 24-35 SEC Sodium Level 141 135-145 MMOL/L Potassium Level 3.1 L 3.6-5.0 MMOL/L Chloride Level 106 98-107 MMOL/L Carbon Dioxide Level 22 21-32 MMOL/L Anion Gap 13 5-14 MMOL/L Blood Urea Nitrogen 14 7-18 MG/DL Creatinine 1.04 0.60-1.30 MG/DL Estimat Glomerular Filtration Rate 52 BUN/Creatinine Ratio 13 Glucose Level 117 H 70-105 MG/DL Lactic Acid Level 1.25 0.50-2.00 MMOL/L Calcium Level 9.8 8.5-10.1 MG/DL Corrected Calcium 9.4 8.5-10.1 MG/DL Magnesium Level 2.1 1.6-2.4 MG/DL Total Bilirubin 0.6 0.1-1.0 MG/DL Aspartate Amino Transf (AST/SGOT) 14 5-34 U/L Alanine Aminotransferase (ALT/SGPT) 5 0-55 U/L Alkaline Phosphatase 61 40-136 U/L Troponin I < 0.30 <0.30 NG/ML C-Reactive Protein 0.13 <0.50 MG/DL Total Protein 6.8 6.4-8.2 GM/DL Albumin 4.5 3.2-4.5 GM/DL Urine Color YELLOW Urine Clarity CLEAR Urine pH 7.0 5-9 Urine Specific Apex 1.010 L 1.016-1.022 Urine Protein NEGATIVE NEGATIVE Urine Glucose (UA) NEGATIVE NEGATIVE Urine Ketones NEGATIVE NEGATIVE Urine Nitrite NEGATIVE NEGATIVE Urine Bilirubin NEGATIVE NEGATIVE Urine Urobilinogen 1.0 < = 1.0 MG/DL Urine Leukocyte Esterase TRACE H NEGATIVE Urine RBC (Auto) NEGATIVE NEGATIVE Urine RBC 0-2 /HPF Urine WBC 5-10 H /HPF Urine Squamous Epithelial Cells RARE /HPF Urine Crystals NONE /LPF Urine Bacteria TRACE /HPF Urine Casts NONE /LPF Urine Mucus SMALL H /LPF Urine Culture Indicated YES My Orders Orders - CHANTAL TIDWELL MD Monitor-Rhythm Ecg Trace Only (09/29/20 12:28) Cbc With Automated Diff (09/29/20 12:28) Comprehensive Metabolic Panel (09/29/20 12:28) Crp Fs (09/29/20 12:28) Troponin I Fs (09/29/20 12:28) Protime With Inr (09/29/20 12:28) Partial Thromboplastin Time (09/29/20 12:28) Ekg Tracing (09/29/20 12:28) Ns Iv 1000 Ml (Sodium Chloride 0.9%) (09/29/20 12:30) Ondansetron Injection (Zofran Injectio (09/29/20 12:28) Blood Culture (09/29/20 12:30) Lactic Acid Analyzer (09/29/20 12:30) Ua Culture If Indicated (09/29/20 12:30) Chest 1 View Ap/Pa Only (09/29/20 12:30) Magnesium (09/29/20 12:30) Coronavirus Sars-Cov-2 So 2018 (09/29/20 12:49) Urine Culture (09/29/20 13:15) Ceftriaxone For Iv Use (Rocephin For I (09/29/20 13:41) Potassium Chloride (Tablet) (K Dur Table (09/29/20 13:41) Vital Signs/I&O 09/29/20 09/29/20 12:05 13:50 Temp 37.3 Pulse 104 74 Resp 18 18 B/P (MAP) 132/66 (88) 104/46 Pulse Ox 94 97 O2 Delivery Room Air Room Air Capillary Refill : Less Than 3 Seconds Blood Pressure Mean: 88 Progress Note #1: Progress Note Check basic labs as well electrocardiogram and chest x-ray. Placed on cardiac telemetry monitoring for her concern about heart racing to see if there is an a rrhythmia or abnormality with her heart rate. Give IV fluids for hydration as she states that she has not been eating and drinking well due to nausea. Try dose of Zofran to see if that might help with her symptoms. Although her oxygen saturation is 100% with a good waveform obtain chest x-ray to see if there might be indication of infiltrate or pneumonia. Her temperature was 99.2 Fahrenheit so cultures with lactic acid also ordered. Progress Note #2: Time: 13:33 Progress Note CBC shows no acute significant abnormality to account for her palpitations. Her chemistry panel does show mild hypokalemia. Her magnesium and lactic acid as well as troponin renal function and liver enzymes are all within normal limits. Electrocardiogram does not show any acute significant abnormality. Urinalysis has trace amounts of leukocyte esterase with white blood cells and bacteria so she may have mild UTI as well. On my review for 1 view chest x-ray showed no definite infiltrate or effusion. Her heart rate has improved with hydration. She is in the 70s and sinus rhythm on telemetry monitoring. Will give a antibiotic for her mild urine infection and supplement her potassium. Counseled on follow-up with primary provider. The Covid swab will be sent but results will be 24 to 36 hours before they will be back. ECG Initial ECG Impression Date: Sep 29, 2020 Initial ECG Impression Time: 12:39 Initial ECG Rate: 79 Initial ECG Rhythm: Normal Sinus Initial ECG Comparisson: No Previous ECG Available Comment Normal sinus rhythm with a heart rate of 79 bpm. IN interval 173 ms. Right axis deviation. QT interval 386 ms with a QTc interval 443 ms. There is no acute ST elevation. There is no prior tracing available for comparison. Diagnostic Imaging Diagonstic Imaging: Xray Plain Films/CT/US/NM/MRI: chest Comments NAME: ARI CARBAJAL [facility] REC#: [id number] PT STATUS: REG ER : 1950 PHYSICIAN: CHANTAL TIDWELL MD ADMIT DATE: 09/29/20/ER FS Draft Date of Exam:09/29/20 CHEST 1 VIEW AP/PA ONLY INDICATION: Shortness of air EXAMINATION: Chest from 09/29/2020 FINDINGS: 2 views of the chest The lungs are hyperinflated. There is a questionable density in the left upper chest but stable from 08/31/2019. No infiltrates or effusions. No pneumothorax. IMPRESSION: 1. Chronic findings. No acute abnormality. Dictated on workstation # [id number] Dict: 09/29/20 1326 Trans: 09/29/[address] [id number] Interpreted by: NIYA SINGH MD Electronically signed by: Departure Impression Primary Impression: Heart palpitations Additional Impressions: Shortness of breath Cystitis without hematuria Hypokalemia Disposition: HOME, SELF-CARE Condition: Improved Departure-Patient Inst. Decision time for Depature: 13:41 Referrals: DIEGO RUEDA MD (PCP/Family) Primary Care Physician Patient Instructions: Coronavirus Disease 2019 (COVID-19) ED, Coronavirus Disease 2019 (COVID-19) Overview, High Potassium Diet, Hypokalemia (DC), Palpitations (DC), Shortness of Breath, Adult ED, Urinary Tract Infection, Adult ED Add. Discharge Instructions: Stay well hydrated and take full course of antibiotics for urine infection. Try to increase potassium in your diet. Follow up with Dr. Rueda in the clinic for continued concerns. Your test for Covid-19 will come back in 24-36 hours and you will be notified of the results. Until you are notified of results you should self quarantine to prevent possible exposure of anyone else to Covid until you know if you have a positive result or not. All discharge instructions reviewed with patient and/or family. Voiced understanding. Scripts Ondansetron (Ondansetron Odt) 4 Mg Tab.rapdis 4 MG PO Q6H PRN for NAUSEA/VOMITING for 5 Days, #20 TAB 0 Refills Prov: CHANTAL TIDWELL MD 09/29/20 Cephalexin (Cephalexin) 500 Mg Tablet 500 MG PO TID for UTI for 7 Days, #20 TAB 0 Refills Prov: CHANTAL TIDWELL MD 09/29/20 CHANTAL TIDWELL MD Sep 29, 2020 12:38
[2020-09-29 12:41] LABS: BASOPHILS % (AUTO) 2 % (0-10); EOSINOPHILS % (AUTO) 4 % (0-10); HEMATOCRIT 37 % (35-52); HEMOGLOBIN 12.4 G/DL (11.5-16.0); LYMPHOCYTES # (AUTO) 0.9 X 10^3 (1.0-4.0); LYMPHOCYTES % (AUTO) 19 % (12-44); MEAN CORPUSCULAR HEMOGLOBIN 30 PG (25-34); MEAN CORPUSCULAR HGB CONC 34 G/DL (32-36); MEAN CORPUSCULAR VOLUME 90 FL (80-99); MEAN PLATELET VOLUME 9.5 FL (7.4-10.4); MONOCYTES # (AUTO) 0.3 X 10^3 (0.0-1.0); MONOCYTES % (AUTO) 7 % (0-12); NEUTROPHILS # (AUTO) 3.2 X 10^3 (1.8-7.8); NEUTROPHILS % (AUTO) 69 % (42-75); PLATELET COUNT 362 10^3/uL (130-400); WHITE BLOOD COUNT 4.6 10^3/uL (4.3-11.0)
[2020-09-29 12:42] LABS: BASOPHILS # (AUTO) 0.1 10^3/uL (0.0-0.1); EOSINOPHILS # (AUTO) 0.2 10^3/uL (0.0-0.3)
[2020-09-29 12:51] LABS: PROTHROMBIN TIME PATIENT 13.9 SEC (12.2-14.7)
[2020-09-29 13:00] LABS: ALANINE AMINOTRANSFERASE 5 U/L (0-55); ALBUMIN 4.5 GM/DL (3.2-4.5); ALKALINE PHOSPHATASE 61 U/L (40-136); BILIRUBIN,TOTAL 0.6 MG/DL (0.1-1.0); BUN/CREATININE RATIO 13; CALCIUM 9.8 MG/DL (8.5-10.1); CARBON DIOXIDE 22 MMOL/L (21-32); CHLORIDE 106 MMOL/L (98-107); CREATININE SERUM 1.04 MG/DL (0.60-1.30); GFR ESTIMATED 52; GLUCOSE 117 MG/DL (70-105); POTASSIUM 3.1 MMOL/L (3.6-5.0); SODIUM 141 MMOL/L (135-145); TOTAL PROTEIN 6.8 GM/DL (6.4-8.2)
[2020-09-29 13:25] LABS: BACTERIA,URINE TRACE /HPF; BILIRUBIN,URINE NEGATIVE (NEGATIVE); CLARITY,URINE CLEAR; COLOR,URINE YELLOW; GLUCOSE, URINE (UA) NEGATIVE (NEGATIVE); KETONES,URINE NEGATIVE (NEGATIVE); LEUKOCYTE ESTERASE ,URINE TRACE (NEGATIVE); NITRITE,URINE NEGATIVE (NEGATIVE); PROTEIN,URINE NEGATIVE (NEGATIVE); RBC,URINE 0-2 /HPF; SQUAMOUS EPITHELIAL CELL,UR RARE /HPF
--- NOTE | 2020-09-29 13:33 | Diagnostic Imaging Report ---
INDICATION: Shortness of air EXAMINATION: Chest from 09/29/2020 FINDINGS: 2 views of the chest The lungs are hyperinflated. There is a questionable density in the left upper chest but stable from 08/31/2019. No infiltrates or effusions. No pneumothorax. IMPRESSION: 1. Chronic findings. No acute abnormality. Dictated by: Dictated on workstation # [id number]
[2020-09-29] MEDS ORDERED: KCL 20 MEQ TAB (K-DUR) PO STA (13:41)
[2020-09-29] MEDS ORDERED: ONDA4TAB11 PO (13:41)
[2020-09-29] MEDS ORDERED: CEPH500T PO (13:41)
[2020-09-29] MEDS ORDERED: cefTRIAXone FOR IV USE 1,000 MG in WATER (STERILE) FOR INJECTION 10 ML IV STA (13:41)
[2020-09-29 13:50] VITALS: BP 104/46
== END 2020-09-29 14:20 | disposition home or self-care (01) ==
LOC: EDUNIT# 12:01 → ER FS 12:03
DX: R00.2 Palpitations (principal); R06.02 Shortness of breath; N30.90 Cystitis, unspecified without hematuria; E87.6 Hypokalemia; F41.9 Anxiety disorder, unspecified; K21.9 Gastro-esophageal reflux disease without esophagitis; Z20.822 Contact with and (suspected) exposure to COVID-19; Z79.82 Long term (current) use of aspirin
CPT/HCPCS: 36415; 71045; 80053; 81000; 83605; 83735; 84484; 85025; 85610; 85730; 86141; 87040; 87088; 93041; 99284; U0002; 87635

== ENCOUNTER 2021-04-09 10:36 | Emergency (ER) | payer MEDICARE, MEDICAID ==
[~2021-04-09] VITALS: Ht 162 cm; Wt 52.0 kg
[~2021-04-09 10:36] MED LIST changes: +CEPH500T PO; +ONDA4TAB11 PO
--- OUTSIDE RECORDS SUMMARY | 2021-04-09 10:42 | XMS REPORT | Clinical Summary ---
Author Author [facility] Organization [facility] Address Unknown Phone Unavailable Care Team Providers Care Legislative Analyst Name Role Phone PCP Unavailable Allergies Not on File Medications Not on file Active Problems Not on file Social History Date Tobacco Use Types Packs/Day Years Used Never Assessed Sex Assigned at Date Recorded Not on file Last Filed Vital Signs Not on file Plan of Treatment Not on file Results Not on filefrom Last 3 Months
[2021-04-09 11:08] LABS: BASOPHILS # (AUTO) 0.1 10^3/uL (0.0-0.1); BASOPHILS % (AUTO) 2 % (0-10); EOSINOPHILS # (AUTO) 0.3 10^3/uL (0.0-0.3); EOSINOPHILS % (AUTO) 5 % (0-10); HEMATOCRIT 36 % (35-52); HEMOGLOBIN 11.9 g/dL (11.5-16.0); LYMPHOCYTES # (AUTO) 1.5 X 10^3 (1.0-4.0); LYMPHOCYTES % (AUTO) 29 % (12-44); MEAN CORPUSCULAR HEMOGLOBIN 29 pg (25-34); MEAN CORPUSCULAR HGB CONC 33 g/dL (32-36); MEAN CORPUSCULAR VOLUME 90 fL (80-99); MEAN PLATELET VOLUME 9.1 fL (9.0-12.2); MONOCYTES # (AUTO) 0.5 X 10^3 (0.0-1.0); MONOCYTES % (AUTO) 10 % (0-12); NEUTROPHILS # (AUTO) 2.8 X 10^3 (1.8-7.8); NEUTROPHILS % (AUTO) 53 % (42-75); PLATELET COUNT 404 10^3/uL (130-400); WHITE BLOOD COUNT 5.2 10^3/uL (4.3-11.0)
[2021-04-09] MEDS ORDERED: NS IV 1000 ML 1,000 ML IV STA (11:20)
--- NOTE | 2021-04-09 11:26 | ED General ---
General Chief Complaint: Respiratory Problems Stated Complaint: ARRHYTHMIA Nursing Triage Note: Pt here with generalized c/o of soa and feeling like her heart is racing x 2 wks. Pt states she has a hx of anxiety and is supposed to be taking Zoloft but isn't. Pt denies cp. States she feels like her heart is racing now but HR is in the 80's. Pt appears very anxious. Source of Information: Patient, Old Records History of Present Illness Date Seen by Provider: Apr 09, 2021 Time Seen by Provider: 10:47 Initial Comments 70-year-old female presenting with complaints of over 2 weeks of shortness of breath and feeling like her heart was racing. She does state that she has been seen for this multiple times in the past and been told it was anxiety. However today she felt like her symptoms were worse and so she came to be seen. She has not tried to get in with Dr. Rueda her primary care doctor because she states that he never has time to be seen and never has any appointments. She denies any history of cardiac disease and has never seen a beehive kiln charcoal burner. She has not been having any cough or congestion. She denies any fever, chills, pain with urination. She states that she has nausea all the time but feels again that it is related to anxiety. She has had no vomiting. She has had some irritable bowel symptoms where she has loose stools and alternates with constipation. She is worried that she will have a heart attack and will not know the difference between her current symptoms and the heart attack symptoms. Associated Systoms: No Chest Pain, No Cough, No Diaphoresis, No Fever/Chills; Headaches (behind left eye but resolved and not present now); No Loss of Appetite; Malaise, Nausea/Vomiting (chronic nausea but no vomiting); No Rash, No Seizure; Shortness of Air; No Syncope; Weakness Allergies and Home Medications Allergies Coded Allergies: No Known Drug Allergies (Unverified , 12/26/18) Home Medications Aspirin 81 Mg Tab.chew, 81 MG PO DAILY, (Reported) Cephalexin 500 Mg Tablet, 500 MG PO TID Prescribed by: CHANTAL TIDWELL on 09/29/20 1341 Esomeprazole Magnesium 40 Mg Capsule.dr, 40 MG PO DAILY, (Reported) Ondansetron 4 Mg Tab.rapdis, 4 MG PO Q6H PRN for NAUSEA/VOMITING Prescribed by: CHANTAL TIDWELL on 09/29/20 1341 Patient Home Medication List Home Medication List Reviewed: Yes Review of Systems Review of Systems Constitutional: see HPI EENTM: see HPI Respiratory: see HPI Cardiovascular: No chest pain, No edema; palpitations Gastrointestinal: diarrhea (chronic), nausea; No vomiting Genitourinary: no symptoms reported; No dysuria Musculoskeletal: no symptoms reported Skin: no symptoms reported Psychiatric/Neurological: See HPI, Anxiety Past Ftcjbnt-Zuxifp-Reyslk Hx Patient Social History Smoking Status: Never a Smoker Substance use?: No Pt feels they are or have been: No Seasonal Allergies Seasonal Allergies: No Past Medical History Surgeries: Yes Adenoidectomy, Gallbladder, Orthopedic, Tonsillectomy Respiratory: Yes Pneumonia, COPD Cardiac: No Neurological: No Genitourinary: Yes (glomerulonephritis) Gastrointestinal: Yes (gastritis, duodenitis) Gastroesophageal Reflux Musculoskeletal: Yes Fibromyalgia Endocrine: Yes (systemic scleroderma) Lupus HEENT: No Cancer: No Psychosocial: Yes Anxiety, Depression Integumentary: Yes (scleroderma) Blood Disorders: No Physical Exam Vital Signs Vital Signs - First Documented 04/09/21 10:53 Temp 36.2 Pulse 89 Resp 16 B/P (MAP) 123/64 (83) Pulse Ox 100 O2 Delivery Room Air Capillary Refill : Less Than 3 Seconds Height, Weight, BMI Height: 5'3.00" Weight: 123lbs. oz. 55.489292yn; 19.00 BMI Method:Stated General Appearance: No Apparent Distress, WD/WN, Anxious HEENT: PERRL/EOMI, Pharynx Normal Neck: Full Range of Motion, Normal Inspection, Non Tender, Supple Respiratory: Chest Non Tender, Lungs Clear, Normal Breath Sounds, No Accessory Muscle Use, No Respiratory Distress Cardiovascular: Regular Rate, Rhythm, No Murmur, Normal Peripheral Pulses Gastrointestinal: Normal Bowel Sounds, No Pulsatile Mass, Non Tender, Soft Rectal: Deferred Extremity: Normal Capillary Refill, Normal Inspection, No Pedal Edema Neurologic/Psychiatric: Alert, Oriented x3, architecture manager II-XII Norm as Tested Skin: Normal Color, Warm/Dry Progress/Results/Core Measures Suspected Sepsis SIRS Temperature: Pulse: 89 Respiratory Rate: 16 Laboratory Tests 04/09/21 10:45: White Blood Count 5.2 Blood Pressure 123 /64 Mean: 83 Laboratory Tests 04/09/21 10:45: Creatinine 1.02, INR Comment 0.9, Platelet Count 404H, Total Bilirubin 0.4 Results/Orders Lab Results Laboratory Tests Test 04/09/21 10:45 Range/Units White Blood Count 5.2 4.3-11.0 10^3/uL Red Blood Count 4.04 3.80-5.11 10^6/uL Hemoglobin 11.9 11.5-16.0 g/dL Hematocrit 36 35-52 % Mean Corpuscular Volume 90 80-99 fL Mean Corpuscular Hemoglobin 29 25-34 pg Mean Corpuscular Hemoglobin Concent 33 32-36 g/dL Red Cell Distribution Width 14.6 H 10.0-14.5 % Platelet Count 404 H 130-400 10^3/uL Mean Platelet Volume 9.1 9.0-12.2 fL Immature Granulocyte % (Auto) 0 % Neutrophils (%) (Auto) 53 42-75 % Lymphocytes (%) (Auto) 29 12-44 % Monocytes (%) (Auto) 10 0-12 % Eosinophils (%) (Auto) 5 0-10 % Basophils (%) (Auto) 2 0-10 % Neutrophils # (Auto) 2.8 1.8-7.8 X 10^3 Lymphocytes # (Auto) 1.5 1.0-4.0 X 10^3 Monocytes # (Auto) 0.5 0.0-1.0 X 10^3 Eosinophils # (Auto) 0.3 0.0-0.3 10^3/uL Basophils # (Auto) 0.1 0.0-0.1 10^3/uL Immature Granulocyte # (Auto) 0.0 0.0-0.1 10^3/uL Prothrombin Time 12.8 12.2-14.7 SEC INR Comment 0.9 0.8-1.4 Activated Partial Thromboplast Time 29 24-35 SEC Sodium Level 139 135-145 MMOL/L Potassium Level 3.5 L 3.6-5.0 MMOL/L Chloride Level 102 98-107 MMOL/L Carbon Dioxide Level 23 21-32 MMOL/L Anion Gap 14 5-14 MMOL/L Blood Urea Nitrogen 12 7-18 MG/DL Creatinine 1.02 0.60-1.30 MG/DL Estimat Glomerular Filtration Rate 53 BUN/Creatinine Ratio 12 Glucose Level 98 70-105 MG/DL Calcium Level 9.2 8.5-10.1 MG/DL Corrected Calcium 8.8 8.5-10.1 MG/DL Magnesium Level 2.2 1.6-2.4 MG/DL Total Bilirubin 0.4 0.1-1.0 MG/DL Aspartate Amino Transf (AST/SGOT) 19 5-34 U/L Alanine Aminotransferase (ALT/SGPT) 10 0-55 U/L Alkaline Phosphatase 75 40-136 U/L Troponin I < 0.30 <0.30 NG/ML Pro-B-Type Natriuretic Peptide 170.2 H <75.0 PG/ML Total Protein 7.0 6.4-8.2 GM/DL Albumin 4.5 3.2-4.5 GM/DL My Orders Orders - CHANTAL TIDWELL MD Cbc With Automated Diff (04/09/21 10:47) Magnesium (04/09/21 10:47) Ekg Tracing (04/09/21 10:47) Comprehensive Metabolic Panel (04/09/21 10:47) Protime With Inr (04/09/21 10:47) Partial Thromboplastin Time (04/09/21 10:47) O2 (04/09/21 10:47) Monitor-Rhythm Ecg Trace Only (04/09/21 10:47) Ed Iv/Invasive Line Start (04/09/21 10:47) Troponin I Fs (04/09/21 10:47) Probnp Fs (04/09/21 10:47) Chest 1 View Ap/Pa Only (04/09/21 11:20) Ns Iv 1000 Ml (Sodium Chloride 0.9%) (04/09/21 11:20) Vital Signs/I&O 04/09/21 04/09/21 10:53 11:28 Temp 36.2 Pulse 89 70 Resp 16 16 B/P (MAP) 123/64 (83) 113/60 Pulse Ox 100 100 O2 Delivery Room Air Room Air Capillary Refill : Less Than 3 Seconds Blood Pressure Mean: 83 Progress Note #1: Progress Note Obtain ECG with CXR, labs. Give some IVF for hydration with her nausea. ECG stable without acute findings. Reassured pt that initial exam, vitals and ECG look ok. If labs look ok as well then she would need to contact Dr. Rueda and Cardiology about follow up and possible Holter or Event monitor to see if she has actual arrhythmia to go with her episodes of feeling like her heart is racing. Differential diagnosis palpitations, anxiety, heart arrhythmia, cardiac ischemia, pneumonia, dehydration, electrolyte imbalance, hypothyroid, hyperthyroid Progress Note #2: Progress Note Labs are all stable without acute significant abnormality. CXR without infiltrate but shows COPD changes. She has mild low potassium at 3.5. Will encourage potassium rich diet and fluids and rest. Check with clinic about follow up and may need holter or event monitor to look for other sources of palpitations and shortness of breath. ECG Initial ECG Impression Date: Apr 09, 2021 Initial ECG Impression Time: 10:45 Initial ECG Rate: 81 Initial ECG Rhythm: Normal Sinus Initial ECG Comparisson: Unchanged Comment Normal sinus rhythm with a heart rate of 81 bpm. AL interval 167 ms. Right axis deviation. No acute ST elevation. QT interval 373 ms with a QTc interval 433 ms. Appears similar to prior tracings in the system. Diagnostic Imaging Diagonstic Imaging: Xray Plain Films/CT/US/NM/MRI: chest Comments NAME: ARI [facility]BAJAL [facility] REC#: [id number] PT STATUS: REG ER : 1950 PHYSICIAN: CHANTAL TIDWELL MD ADMIT DATE: 04/09/21/ER FS Draft Date of Exam:04/09/21 CHEST 1 VIEW AP/PA ONLY Indication: Shortness of breath, palpitations Frontal chest obtained at 1111 a.m. compared to 09/29/2020. Heart and mediastinal silhouette are normal in appearance. There is COPD changes with hyperinflation. There is no focal infiltrate or pneumothorax or pleural fluid. There is a questionable vague nodular density overlying the left apex, consider follow-up apical lordotic view or chest CT. IMPRESSION: COPD changes with no focal infiltrate or pleural fluid. Questionable small nodule versus artifact over left apex, consider apical lordotic views or chest CT as clinically warranted. Dictated on workstation # [id number] Dict: 04/09/21 1131 Trans: 04/09/[address] [facility] [id number] Interpreted by: ARDEN YOO MD Electronically signed by: Reviewed: Reviewed by Me Departure Impression Primary Impression: Heart palpitations Additional Impressions: Shortness of breath Hypokalemia Disposition: 01 HOME, SELF-CARE Condition: Stable Departure-Patient Inst. Decision time for Depature: 11:40 Referrals: RODDY MCDANIELS MD,DIEGO CARDENAS (PCP/Family) Primary Care Physician Patient Instructions: Palpitations ED, Shortness of Breath, Adult ED, High Potassium Diet Add. Discharge Instructions: Follow up with Dr. Rueda or Dr. Mcdaniels for cardiology about your symptoms. They may want to have you get a Holter or Event monitor to watch your heart rate and rhythm for a longer time than can be done here in the ER. This would help look for irregular heart beat or fast heart beat episodes that might be causing your symptoms. Try increasing the potassium in your diet to help raise your potassium level. This may help with your symptoms as well. All discharge instructions reviewed with patient and/or family. Voiced understanding. CHANTAL TIDWELL MD Apr 09, 2021 11:26
[2021-04-09 11:28] LABS: INR 0.9 (0.8-1.4); PROTHROMBIN TIME PATIENT 12.8 SEC (12.2-14.7)
[2021-04-09 11:31] LABS: ALBUMIN 4.5 GM/DL (3.2-4.5); BILIRUBIN,TOTAL 0.4 MG/DL (0.1-1.0); CALCIUM 9.2 MG/DL (8.5-10.1); CREATININE SERUM 1.02 MG/DL (0.60-1.30); MAGNESIUM 2.2 MG/DL (1.6-2.4); POTASSIUM 3.5 MMOL/L (3.6-5.0)
--- NOTE | 2021-04-09 11:35 | Diagnostic Imaging Report ---
Indication: Shortness of breath, palpitations Frontal chest obtained at 1111 a.m. compared to 09/29/2020. Heart and mediastinal silhouette are normal in appearance. There is COPD changes with hyperinflation. There is no focal infiltrate or pneumothorax or pleural fluid. There is a questionable vague nodular density overlying the left apex, consider follow-up apical lordotic view or chest CT. IMPRESSION: COPD changes with no focal infiltrate or pleural fluid. Questionable small nodule versus artifact over left apex, consider apical lordotic views or chest CT as clinically warranted. Dictated by: Dictated on workstation # [id number]
[2021-04-09 11:58] VITALS: BP 113/60
== END 2021-04-09 11:59 | disposition home or self-care (01) ==
LOC: EDUNIT# 10:36 → ER FS 10:38
DX: R00.2 Palpitations (principal); R06.02 Shortness of breath; E87.6 Hypokalemia; J44.9 Chronic obstructive pulmonary disease, unspecified; K21.9 Gastro-esophageal reflux disease without esophagitis; F41.9 Anxiety disorder, unspecified; Z79.899 Other long term (current) drug therapy; Z79.82 Long term (current) use of aspirin
CPT/HCPCS: 36415; 71045; 80053; 83735; 83880; 84484; 85025; 85610; 85730; 93005; 93041

== ENCOUNTER 2022-03-04 09:08 | Emergency (ER) | payer MEDICARE, MEDICAID ==
[~2022-03-04] VITALS: Ht 162 cm; Wt 52.0 kg
[2022-03-04] MEDS ORDERED: NS IV 1000 ML 1,000 ML IV STA (09:38)
[2022-03-04 09:58] LABS: BASOPHILS # (AUTO) 0.1 10^3/uL (0.0-0.1); BASOPHILS % (AUTO) 2 % (0-10); EOSINOPHILS # (AUTO) 0.3 10^3/uL (0.0-0.3); EOSINOPHILS % (AUTO) 7 % (0-10); HEMATOCRIT 36 % (35-52); HEMOGLOBIN 11.8 g/dL (11.5-16.0); LYMPHOCYTES % (AUTO) 23 % (12-44); MEAN CORPUSCULAR HEMOGLOBIN 29 pg (25-34); MEAN CORPUSCULAR HGB CONC 33 g/dL (32-36); MEAN CORPUSCULAR VOLUME 89 fL (80-99); MEAN PLATELET VOLUME 9.4 fL (9.0-12.2); MONOCYTES # (AUTO) 0.4 10^3/uL (0.0-1.0); MONOCYTES % (AUTO) 10 % (0-12); NEUTROPHILS # (AUTO) 2.6 10^3/uL (1.8-7.8); NEUTROPHILS % (AUTO) 59 % (42-75); PLATELET COUNT 348 10^3/uL (130-400); WHITE BLOOD COUNT 4.3 10^3/uL (4.3-11.0)
[2022-03-04 10:10] LABS: INR 0.9 (0.8-1.4); PROTHROMBIN TIME PATIENT 12.4 SEC (12.2-14.7)
--- NOTE | 2022-03-04 10:19 | ED Cardiac General ---
History of Present Illness General Chief Complaint: General Problems/Pain Stated Complaint: ELEV HR; LOW BP Nursing Triage Note: PT REPORTS SHE HAS HAD PALPITATIONS OFF AND ON FOR THE PAST 2 WEEEKS BUT THIS HAS BEEN GOING ON FOR A COUPLE OF YEARS D/T HER SEVERE ANXIETY AND PANIC ATTACKS. SHE CURRENT DOES NOT HAVE CHEST PAIN. Source: patient, old records History of Present Illness Date Seen by Provider: Mar 04, 2022 Time Seen by Provider: 09:12 Initial Comments 71-year-old female presenting with complaints of 2 weeks of intermittent chest pain with palpitations. She states that she has had this previously and been told that it was anxiety. However she feels like she cannot tell the difference tween anxiety and panic attacks and when she is having something going on with her heart. She had seen Dr. Rueda about this a year ago and he had wanted her to get some testing and things done in [place] but she never followed up on it. Today when she woke up she felt like her heart was racing and a neighbor took her blood pressure and stated that it was 90 systolic so she came to the emergency department. She was unsure what might be going on but she just wanted to get checked out. In addition to being told she was having a panic attack or anxiety in the past she had also been told that she had low potassium however she is currently taking potassium. Timing/Duration: other (Off and on for several weeks but felt it was worse today) Severity: moderate Location: substernal Activities at Onset: none Prior CP/Workup: non-cardiac NTG SL HISTOPATHOLOGIST: No ASA po HISTOPATHOLOGIST: No Associated Systoms: Chest Pain (Intermittent pressure in her chest); No Cough, No Diaphoresis, No Fever/Chills, No Headaches, No Loss of Appetite, No Malaise; Nausea/Vomiting (Chronic nausea without vomiting) Allergies and Home Medications Allergies Coded Allergies: No Known Drug Allergies (Unverified , 12/26/18) Patient Home Medication List Home Medication List Reviewed: Yes Aspirin (Aspirin) 81 Mg Tab.chew, 81 MG PO DAILY, (Reported) Entered as Reported by: RUDOLPH FIGUEROA on 12/26/18 0820 Cephalexin (Cephalexin) 500 Mg Tablet, 500 MG PO TID Prescribed by: CHANTAL TIDWELL on 09/29/20 1341 Esomeprazole Magnesium (Esomeprazole Magnesium) 40 Mg Capsule., 40 MG PO DAILY, (Reported) Entered as Reported by: RUDOLPH FIGUEROA on 12/26/18 0820 Ondansetron (Ondansetron Odt) 4 Mg Tab.rapdis, 4 MG PO Q6H PRN for NAUSEA/VOMITING Prescribed by: CHANTAL TIDWELL on 09/29/20 1341 Review of Systems Review of Systems Constitutional: No chills; dizziness (sometimes with standing); No fever EENTM: No Symptoms Reported Respiratory: No Symptoms Reported Cardiovascular: See HPI Gastrointestinal: See HPI Genitourinary: Denies Burning, Denies Frequency Musculoskeletal: no symptoms reported Skin: No rash Psychiatric/Neurological: Anxiety, Headache (intermittent) Endocrine: No Symptoms Reported Hematologic/Lymphatic: Denies Blood Clots Past Xvnoewl-Dbeudm-Kpfhih Hx Patient Social History Tobacco Use?: No Use of E-Cig and/or Vaping dev: No Substance use?: No Alcohol Use?: No Pt feels they are or have been: No Seasonal Allergies Seasonal Allergies: No Past Medical History Surgery/Hospitalization HX: TONSILS GALL BLADDER KNEE LUPUS ANXIETY SCLERODERMA Surgeries: Yes Adenoidectomy, Gallbladder, Orthopedic, Tonsillectomy Respiratory: Yes Pneumonia, COPD Cardiac: No Neurological: No Genitourinary: Yes (glomerulonephritis) Gastrointestinal: Yes (gastritis, duodenitis) Gastroesophageal Reflux Musculoskeletal: Yes Fibromyalgia Endocrine: Yes (systemic scleroderma) Lupus HEENT: No Cancer: No Psychosocial: Yes Anxiety, Depression Integumentary: Yes (scleroderma) Blood Disorders: No Physical Exam Vital Signs Vital Signs - First Documented 03/04/22 09:15 Temp 36.6 Pulse 80 Resp 18 B/P (MAP) 111/71 (84) Pulse Ox 97 O2 Delivery Room Air Capillary Refill : Less Than 3 Seconds Height, Weight, BMI Height: 5'3.00" Weight: 123lbs. oz. 55.324246ld; 19.00 BMI Method:Stated General Appearance: Anxious, Thin HEENT: PERRL/EOMI, Pharynx Normal Neck: Full Range of Motion, Normal Inspection, Non Tender, Supple Respiratory: Chest Non Tender, Lungs Clear, Normal Breath Sounds, No Accessory Muscle Use, No Respiratory Distress Cardiovascular: Regular Rate, Rhythm, No Murmur, Normal Peripheral Pulses Gastrointestinal: Normal Bowel Sounds, No Pulsatile Mass, Non Tender, Soft Rectal: Deferred Extremity: Normal Capillary Refill, Normal Inspection, No Pedal Edema Neurologic/Psychiatric: Alert, Oriented x3, getter filler II-XII Norm as Tested Skin: Normal Color, Warm/Dry Progress/Results/Core Measures Results/Orders Lab Results Laboratory Tests Test 03/04/22 09:27 Range/Units White Blood Count 4.3 4.3-11.0 10^3/uL Red Blood Count 4.04 3.80-5.11 10^6/uL Hemoglobin 11.8 11.5-16.0 g/dL Hematocrit 36 35-52 % Mean Corpuscular Volume 89 80-99 fL Mean Corpuscular Hemoglobin 29 25-34 pg Mean Corpuscular Hemoglobin Concent 33 32-36 g/dL Red Cell Distribution Width 14.2 10.0-14.5 % Platelet Count 348 130-400 10^3/uL Mean Platelet Volume 9.4 9.0-12.2 fL Immature Granulocyte % (Auto) 0 % Neutrophils (%) (Auto) 59 42-75 % Lymphocytes (%) (Auto) 23 12-44 % Monocytes (%) (Auto) 10 0-12 % Eosinophils (%) (Auto) 7 0-10 % Basophils (%) (Auto) 2 0-10 % Neutrophils # (Auto) 2.6 1.8-7.8 10^3/uL Lymphocytes # (Auto) 1.0 1.0-4.0 10^3/uL Monocytes # (Auto) 0.4 0.0-1.0 10^3/uL Eosinophils # (Auto) 0.3 0.0-0.3 10^3/uL Basophils # (Auto) 0.1 0.0-0.1 10^3/uL Immature Granulocyte # (Auto) 0.0 0.0-0.1 10^3/uL Prothrombin Time 12.4 12.2-14.7 SEC INR Comment 0.9 0.8-1.4 Activated Partial Thromboplast Time 30 24-35 SEC Sodium Level 139 135-145 MMOL/L Potassium Level 3.9 3.6-5.0 MMOL/L Chloride Level 101 98-107 MMOL/L Carbon Dioxide Level 25 21-32 MMOL/L Anion Gap 13 5-14 MMOL/L Blood Urea Nitrogen 12 7-18 MG/DL Creatinine 1.00 0.60-1.30 MG/DL Estimat Glomerular Filtration Rate 60 BUN/Creatinine Ratio 12 Glucose Level 85 70-105 MG/DL Calcium Level 9.8 8.5-10.1 MG/DL Corrected Calcium 8.5-10.1 MG/DL Magnesium Level 2.3 1.6-2.4 MG/DL Total Bilirubin 0.6 0.1-1.0 MG/DL Aspartate Amino Transf (AST/SGOT) 18 5-34 U/L Alanine Aminotransferase (ALT/SGPT) 9 0-55 U/L Alkaline Phosphatase 71 40-136 U/L Troponin I < 0.30 <0.30 NG/ML Pro-B-Type Natriuretic Peptide 93.2 <125.0 PG/ML Total Protein 7.2 6.4-8.2 GM/DL Albumin 4.8 H 3.2-4.5 GM/DL Lipase 28 8-78 U/L My Orders Orders - CHANTAL TIDWELL MD Ekg Tracing (03/04/22 09:15) Cbc With Automated Diff (03/04/22 09:38) Magnesium (03/04/22 09:38) Comprehensive Metabolic Panel (03/04/22 09:38) Protime With Inr (03/04/22 09:38) Partial Thromboplastin Time (03/04/22 09:38) Monitor-Rhythm Ecg Trace Only (03/04/22 09:38) Ed Iv/Invasive Line Start (03/04/22 09:38) Lipase (03/04/22 09:38) Troponin I Fs (03/04/22 09:38) Probnp Fs (03/04/22 09:38) Ns Iv 1000 Ml (Sodium Chloride 0.9%) (03/04/22 09:38) Ua Culture If Indicated (03/04/22 09:38) Vital Signs/I&O 03/04/22 03/04/22 09:15 10:47 Temp 36.6 36.4 Pulse 80 Resp 18 63 B/P (MAP) 111/71 (84) 120/61 Pulse Ox 97 99 O2 Delivery Room Air Room Air Blood Pressure Mean: 84 Progress Progress Note #1: Progress Note EKG does not show any acute ischemic changes. Counseled patient to check her lites labs to make sure that there is no acute electrolyte imbalance or abnormalities in the blood account for her symptoms. Otherwise she may need a Holter monitor testing through her clinic. Also advised her to see a therapist or counselor to help teach her other methodologies of managing her anxiety and panic attacks. Progress Note #2: Progress Note Labs are all stable without acute significant abnormality. She has continued to be in sinus rhythm without hypotension or tachycardia here in the ED. Reassured patient and reviewed results with her. Again reiterated Holter monitor and modalities for anxiety at home. Initial ECG Impression Date: Mar 04, 2022 Initial ECG Impression Time: 09:21 Initial ECG Rate: 76 Initial ECG Rhythm: Normal Sinus Initial ECG Comparisson: Unchanged Comment Normal sinus rhythm with heart rate of 76 bpm. AK interval [address] elevation. Borderline right axis deviation. QT interval 355 ms with a QTc interval 386 ms. Overall appears similar to prior tracings in the system. Departure Impression Primary Impression: Heart palpitations Disposition: 01 HOME, SELF-CARE Condition: Stable Departure-Patient Inst. Decision time for Depature: 10:37 Referrals: DIEGO RUEDA MD (PCP) Primary Care Physician Patient Instructions: Palpitations ED Add. Discharge Instructions: Check with [facility] provider about ordering a possible Holter monitor or testing to watch heart rate and check for episodes of the fast heart rate to see what might be causing it. Stay well hydrated and get plenty of rest. Consider meeting with a therapist or counselor to have them help teach you other methods and ways of managing anxiety and panic attacks. All discharge instructions reviewed with patient and/or family. Voiced understanding. CHANTAL TIDWELL MD Mar 04, 2022 10:19
[2022-03-04 10:24] LABS: ALANINE AMINOTRANSFERASE 9 U/L (0-55); ALBUMIN 4.8 GM/DL (3.2-4.5); ALKALINE PHOSPHATASE 71 U/L (40-136); BILIRUBIN,TOTAL 0.6 MG/DL (0.1-1.0); BUN/CREATININE RATIO 12; CALCIUM 9.8 MG/DL (8.5-10.1); CARBON DIOXIDE 25 MMOL/L (21-32); CHLORIDE 101 MMOL/L (98-107); GFR ESTIMATED 60; GLUCOSE 85 MG/DL (70-105); LIPASE 28 U/L (8-78); MAGNESIUM 2.3 MG/DL (1.6-2.4); POTASSIUM 3.9 MMOL/L (3.6-5.0); SODIUM 139 MMOL/L (135-145); TOTAL PROTEIN 7.2 GM/DL (6.4-8.2)
[2022-03-04 10:47] VITALS: BP 120/61
== END 2022-03-04 10:43 | disposition home or self-care (01) ==
LOC: EDUNIT# 09:08 → ER FS 09:09
DX: F41.0 Panic disorder [episodic paroxysmal anxiety] (principal); Z28.310 Unvaccinated for COVID-19
CPT/HCPCS: 36415; 80053; 83690; 83735; 83880; 84484; 85025; 85610; 85730; 93005; 93041

== ENCOUNTER 2022-10-19 13:09 | Emergency (ER) | payer MEDICARE, MEDICAID ==
[~2022-10-19] VITALS: Ht 160 cm; Wt 50.0 kg
[2022-10-19 13:22] LABS: BASOPHILS # (AUTO) 0.1 10^3/uL (0.0-0.1); BASOPHILS % (AUTO) 2 % (0-10); EOSINOPHILS # (AUTO) 0.3 10^3/uL (0.0-0.3); EOSINOPHILS % (AUTO) 8 % (0-10); HEMATOCRIT 36 % (35-52); HEMOGLOBIN 11.4 g/dL (11.5-16.0); LYMPHOCYTES # (AUTO) 0.5 10^3/uL (1.0-4.0); LYMPHOCYTES % (AUTO) 15 % (12-44); MEAN CORPUSCULAR HEMOGLOBIN 30 pg (25-34); MEAN CORPUSCULAR HGB CONC 32 g/dL (32-36); MEAN CORPUSCULAR VOLUME 92 fL (80-99); MEAN PLATELET VOLUME 8.7 fL (9.0-12.2); MONOCYTES # (AUTO) 0.4 10^3/uL (0.0-1.0); MONOCYTES % (AUTO) 12 % (0-12); NEUTROPHILS # (AUTO) 2.1 10^3/uL (1.8-7.8); NEUTROPHILS % (AUTO) 62 % (42-75); PLATELET COUNT 259 10^3/uL (130-400); WHITE BLOOD COUNT 3.4 10^3/uL (4.3-11.0)
--- NOTE | 2022-10-19 13:22 | ED General ---
General Chief Complaint: General Problems/Pain Source of Information: Patient, EMS Exam Limitations: No Limitations History of Present Illness Date Seen by Provider: Oct 19, 2022 Time Seen by Provider: 13:10 Initial Comments 72-year-old female with past medical history of lupus and Raynaud's phenomenon that has not on any medications (states she has never needed meds for lupus and that it is "well controlled") coming in via EMS from home due to a couple weeks of productive cough, few days of nonbloody diarrhea, and feeling lightheaded with standing. She does ambulate without any assistance, has been eating and drinking but significantly less while she has felt sick. Denies any chest pain, shortness of breath, abdominal pain, nausea, vomiting, fever, chills, focal weakness or numbness, leg swelling or pain, recent surgery, prior history of DVT or PE, and does not take any hormones. Otherwise denying any other acute complaints Allergies and Home Medications Allergies Coded Allergies: No Known Drug Allergies (Unverified , 12/26/18) Patient Home Medication List Home Medication List Reviewed: Yes Aspirin (Aspirin) 81 Mg Tab.chew, 81 MG PO DAILY, (Reported) Entered as Reported by: RUDOLPH FIGUEROA on 12/26/18 0820 Cephalexin (Cephalexin) 500 Mg Tablet, 500 MG PO TID Prescribed by: CHANTAL TIDWELL on 09/29/20 1341 Esomeprazole Magnesium (Esomeprazole Magnesium) 40 Mg Capsule.dr, 40 MG PO DAILY, (Reported) Entered as Reported by: RUDOLPH FIGUEROA on 12/26/18 0820 Ondansetron (Ondansetron Odt) 4 Mg Tab.rapdis, 4 MG PO Q6H PRN for NAUSEA/VOMITING Prescribed by: CHANTAL TIDWELL on 09/29/20 1341 Review of Systems Review of Systems Constitutional: No fever EENTM: other ("Stuffed up ears") Respiratory: cough Cardiovascular: No chest pain Gastrointestinal: No abdominal pain; diarrhea Genitourinary: no symptoms reported Musculoskeletal: no symptoms reported Skin: no symptoms reported Psychiatric/Neurological: No Symptoms Reported Hematologic/Lymphatic: No Symptoms Reported Immunological/Allergic: no symptoms reported All Other Systems Reviewed Negative Unless Noted: Yes Past Vntidmq-Ebeibr-Rmmodl Hx Patient Social History Tobacco Use?: No Use of E-Cig and/or Vaping dev: No Substance use?: No Alcohol Use?: No Seasonal Allergies Seasonal Allergies: No Past Medical History Surgery/Hospitalization HX: TONSILS GALL BLADDER KNEE LUPUS ANXIETY SCLERODERMA Surgeries: Yes Adenoidectomy, Gallbladder, Orthopedic, Tonsillectomy Respiratory: Yes Pneumonia, COPD Cardiac: No Neurological: No Genitourinary: Yes (glomerulonephritis) Gastrointestinal: Yes (gastritis, duodenitis) Gastroesophageal Reflux Musculoskeletal: Yes Fibromyalgia Endocrine: Yes (systemic scleroderma) Lupus HEENT: No Cancer: No Psychosocial: Yes Anxiety, Depression Integumentary: Yes (scleroderma) Blood Disorders: No Physical Exam Vital Signs Vital Signs - First Documented 10/19/22 13:19 Temp 36.4 Pulse 73 Resp 16 B/P (MAP) 124/76 (92) Pulse Ox 100 O2 Delivery Nasal Cannula Capillary Refill : Height, Weight, BMI Height: 5'3.00" Weight: 123lbs. oz. 55.689242xo; 19.00 BMI Method:Stated General Appearance: No Apparent Distress, WD/WN Eyes: Bilateral Eye Normal Inspection HEENT: PERRL/EOMI, Pharynx Normal, Other (Bilateral cerumen impaction, dry mucous membranes) Neck: Full Range of Motion, Normal Inspection, Non Tender, Supple Respiratory: Chest Non Tender, Lungs Clear, Normal Breath Sounds, No Accessory Muscle Use, No Respiratory Distress, Other (Coughing while in room) Cardiovascular: Regular Rate, Rhythm, No Edema, Normal Peripheral Pulses Gastrointestinal: Normal Bowel Sounds, Non Tender, Soft; No Distended, No Guarding Back: Normal Inspection, No CVA Tenderness Extremity: Normal Capillary Refill, Normal Inspection, Normal Range of Motion, Non Tender, No Calf Tenderness, No Pedal Edema Neurologic/Psychiatric: Alert, Oriented x3, No Motor/Sensory Deficits, Normal Mood/Affect, 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 Norm as Tested, Other (Normal gait, normal finger-nose, normal dvtj-ze-sqqj) Skin: Normal Color, Warm/Dry Lymphatic: No Adenopathy Progress/Results/Core Measures Suspected Sepsis SIRS Temperature: Pulse: Respiratory Rate: Laboratory Tests 10/19/22 13:15: White Blood Count 3.4L Blood Pressure / Mean: Laboratory Tests 10/19/22 13:15: Creatinine 0.95, Platelet Count 259 Results/Orders Lab Results Laboratory Tests Test 10/19/22 13:12 10/19/22 13:15 Range/Units Influenza Type A (RT-PCR) Not Detected Not Detecte Influenza Type B (RT-PCR) Not Detected Not Detecte SARS-CoV-2 RNA (RT-PCR) Not Detected Not Detecte White Blood Count 3.4 L 4.3-11.0 10^3/uL Red Blood Count 3.87 3.80-5.11 10^6/uL Hemoglobin 11.4 L 11.5-16.0 g/dL Hematocrit 36 35-52 % Mean Corpuscular Volume 92 80-99 fL Mean Corpuscular Hemoglobin 30 25-34 pg Mean Corpuscular Hemoglobin Concent 32 32-36 g/dL Red Cell Distribution Width 14.4 10.0-14.5 % Platelet Count 259 130-400 10^3/uL Mean Platelet Volume 8.7 L 9.0-12.2 fL Immature Granulocyte % (Auto) 0 % Neutrophils (%) (Auto) 62 42-75 % Lymphocytes (%) (Auto) 15 12-44 % Monocytes (%) (Auto) 12 0-12 % Eosinophils (%) (Auto) 8 0-10 % Basophils (%) (Auto) 2 0-10 % Neutrophils # (Auto) 2.1 1.8-7.8 10^3/uL Lymphocytes # (Auto) 0.5 L 1.0-4.0 10^3/uL Monocytes # (Auto) 0.4 0.0-1.0 10^3/uL Eosinophils # (Auto) 0.3 0.0-0.3 10^3/uL Basophils # (Auto) 0.1 0.0-0.1 10^3/uL Immature Granulocyte # (Auto) 0.0 0.0-0.1 10^3/uL Sodium Level 139 135-145 MMOL/L Potassium Level 3.7 3.6-5.0 MMOL/L Chloride Level 102 98-107 MMOL/L Carbon Dioxide Level 22 21-32 MMOL/L Anion Gap 15 H 5-14 MMOL/L Blood Urea Nitrogen 13 7-18 MG/DL Creatinine 0.95 0.60-1.30 MG/DL Estimat Glomerular Filtration Rate 63 BUN/Creatinine Ratio 14 Glucose Level 96 70-105 MG/DL Calcium Level 9.1 8.5-10.1 MG/DL My Orders Orders - ALEXANDRA MENDOZA MD Basic Metabolic Panel (10/19/22 13:17) Cbc With Automated Diff (10/19/22 13:17) Influenza A And B By Pcr (10/19/22 13:17) Chest 1 View Ap/Pa Only (10/19/22 13:17) Ed Iv/Invasive Line Start (10/19/22 13:17) Ns Iv 1000 Ml (Sodium Chloride 0.9%) (10/19/22 13:30) Covid 19 Inhouse Test (10/19/22 13:17) Vital Signs/I&O 10/19/22 13:19 Temp 36.4 Pulse 73 Resp 16 B/P (MAP) 124/76 (92) Pulse Ox 100 O2 Delivery Nasal Cannula Capillary Refill : Progress Note : Progress Note 72-year-old female coming in due to 2 weeks of productive cough, recent diarrhea, feeling slightly lightheaded, drinking less fluids. ABCs were intact and vitals were stable on presentation, specifically the patient was 100% on room air, breathing comfortably, lungs were clear. I personally did orthostatic vitals on the patient and her heart rate went from 85-1 08 upon standing. Blood pressure remained stable. She felt slightly lightheaded upon standing qualifying her to be positive for orthostatics. Given she had a dry tongue, significant diarrhea, an IV was placed and she was given a bolus of IV fluids. Basic labs including electrolytes obtained and were unremarkable. Flu and COVID test were negative. She has a soft and nontender abdomen. Chest x-ray ordered and interpreted by me showing no obvious pneumonia, pneumothorax, and cardiac silhouette appears normal. Adrian-Hallpike was negative, and I was unable to really elicit any true vertigo by the patient. Neuro exam completely normal with no signs of posterior stroke. Also given that the symptoms have been going on for couple weeks associated with URI type symptoms, patient is ambulatory without difficulty, also makes this very unlikely. She does have fairly impacted ears, I discussed using oil drops and gentle rinsing with water to help with this. On reassessment after IV fluids, orthostatics improved. Likely this is a case of mild dehydration with orthostatics given the diarrhea and lack of p.o. intake. I did give her a couple water here which she is tolerating. I believe she stable for discharge with outpatient follow-up. She was sent home with strict return precautions. Regards to her productive cough, I discussed [id number] antibiotics, I will send a prescription for her to fill if she has a worsening of her cough or develops fever in the next couple of days. Diagnostic Imaging Diagonstic Imaging: Xray (chest) Comments [facility]. [place], [place] NAME: ARI CARBAJAL [facility] REC#: [id number] PT STATUS: REG ER : 1950 PHYSICIAN: ALEXANDRA MENDOZA MD ADMIT DATE: 10/19/22/ER FS Signed Date of Exam:10/19/22 CHEST 1 VIEW AP/PA ONLY EXAMINATION: Chest 1 view HISTORY: Cough. Shortness of breath. COMPARISON: 04/09/2021. FINDINGS: The lung volumes are normal. No focal consolidation is seen. Stable appearance of faint nodularity in the left upper lobe. No large pleural effusion or pneumothorax is seen. The cardiomediastinal silhouette is normal in size and contour. There is calcified aortic atherosclerotic plaque. No acute osseous abnormality is seen. IMPRESSION: 1. No acute pleuroparenchymal process. 2. Stable faint nodularity in the left upper lobe. Given the stability this may represent a benign granuloma. Dictated by: Dictated on workstation # [id number] Dict: 10/19/22 1332 Trans: 10/19/22 1341 CV [id number] Interpreted by: JOSE EDUARDO BERRY DO Electronically signed by: JOSE EDUARDO BERRY DO 10/19/22 1341 Departure Impression Primary Impression: Cough Qualified Codes: R05.2 - Subacute cough Additional Impressions: Orthostatic dizziness Cerumen impaction Qualified Codes: H61.23 - Impacted cerumen, bilateral Disposition: 01 HOME, SELF-CARE Condition: Stable Departure-Patient Inst. Decision time for Depature: 14:16 Referrals: DIEGO AGUILAR MD (PCP/Family) Primary Care Physician Patient Instructions: Dizziness, Nonvertigo, (DC), Cough, Adult ED, Ear Wax Impaction ED Add. Discharge Instructions: We believe you are mildly dehydrated from the diarrhea and lack of eating and drinking as much as usual. The fluid should help with this. Be sure to be drinking fluids during the day to try to keep up with diarrhea. We sent a "ephn-[id number]" antibiotic to your pharmacy. If your cough worsens in the next couple of days, or you develop fever, then fill the prescription. Otherwise follow-up with your regular doctor in the next couple of days if not improving as well Scripts Azithromycin (Azithromycin) 250 Mg Tablet 250 MG PO UD, #6 TAB TAKE 2 TABLETS ON DAY ONE THEN TAKE 1 TABLET DAILY FOR FOUR MORE DAYS Prov: ALEXANDRA MENDOZA MD 10/19/22 ALEXANDRA MENDOZA MD Oct 19, 2022 13:22
[2022-10-19] MEDS ORDERED: NS IV 1000 ML 1,000 ML IV SCH (13:30)
--- NOTE | 2022-10-19 13:40 | Diagnostic Imaging Report ---
EXAMINATION: Chest 1 view HISTORY: Cough. Shortness of breath. COMPARISON: 04/09/2021. FINDINGS: The lung volumes are normal. No focal consolidation is seen. Stable appearance of faint nodularity in the left upper lobe. No large pleural effusion or pneumothorax is seen. The cardiomediastinal silhouette is normal in size and contour. There is calcified aortic atherosclerotic plaque. No acute osseous abnormality is seen. IMPRESSION: 1. No acute pleuroparenchymal process. 2. Stable faint nodularity in the left upper lobe. Given the stability this may represent a benign granuloma. Dictated by: Dictated on workstation # [id number]
[2022-10-19 13:41] LABS: CALCIUM 9.1 MG/DL (8.5-10.1); CREATININE SERUM 0.95 MG/DL (0.60-1.30); POTASSIUM 3.7 MMOL/L (3.6-5.0)
[2022-10-19] MEDS ORDERED: AZIT250T12 PO (14:19)
[2022-10-19 14:24] VITALS: BP 131/71
== END 2022-10-19 14:26 | disposition home or self-care (01) ==
LOC: EDUNIT# 13:09 → ER FS 13:10
DX: H61.23 Impacted cerumen, bilateral (principal); R19.7 Diarrhea, unspecified; Z20.822 Contact with and (suspected) exposure to COVID-19
CPT/HCPCS: 36415; 71045; 80048; 85025; 87636

== ENCOUNTER → 2023-06-01 | Outpatient (CLI) | payer MEDICARE, MEDICAID ==
[~2023-06-01] MED LIST changes: +AZIT250T12 PO
--- NOTE | 2023-06-01 09:40 | Diagnostic Imaging Report ---
PROCEDURE: MR imaging of the brain without contrast. TECHNIQUE: Multiplanar, multisequence MR imaging of the brain was performed without contrast. INDICATION: Recurrent headaches COMPARISON: None FINDINGS: The ventricles and cortical sulci are slightly prominent, compatible with age related volume loss. There is no acute infarction. There is no midline shift or mass effect identified. No intraparenchymal or extraaxial hemorrhage or fluid collection is identified. There is no other focal parenchymal abnormality seen. The midline craniocervical anatomy is unremarkable. The major expected intracranial flow voids are seen. There are no focal calvarial lesions. The visualized paranasal sinuses are unremarkable. The mastoid air cells are clear. IMPRESSION: 1. No acute intracranial abnormalities. No acute infarction, acute intra-axial hemorrhage, or focal intra-axial mass. Dictated by: Dictated on workstation # [id number]
== END ==
LOC: RAD 08:35
PROVIDERS: ATTEND Family Medicine
DX: R51.9 Headache, unspecified (principal)
CPT/HCPCS: 70551